=== PATIENT | female | born 1970 | race Caucasian/White ===

== ENCOUNTER 2019-01-26 14:16 | Emergency (ER) | payer OTHER, SELFPAY ==
[2019-01-26 14:17] VITALS: BP 192/90; PULSE 80; RESP 16; TEMP 36.4; O2SAT 100; BMI 41.9
--- NOTE | 2019-01-26 14:26 | RAD_ITS ---
STUDY: X-RAY - RIGHT KNEE REASON FOR EXAM: Female, 48 years old. Pain and fall TECHNIQUE: 4 view(s) of the knee. COMPARISON: None. FINDINGS: Normal visualized distal femur. Normal visualized proximal tibia and fibula. Normal proximal tibiofibular articulation. Normal medial femorotibial compartment. Normal lateral femorotibial compartment. Normal patellofemoral articulation. The soft tissue structures are unremarkable. RAD/Knee 4 or More Views IMPRESSION: No acute osseous injury is evident. Electronically Signed: Luiz Santos MD at 14:57 EST Tel , Service support ,
--- NOTE | 2019-01-26 14:27 | ED.VIS.GEN ---
History of Present Illness Chief Complaint: Lower Extremity Injury Informant: Patient Onset: Days Maximum Severity: Mild Narrative: Right knee pain after fall about 4 days ago Reports knee pain she simply tripped and fell and struck her knee she has had some pain with flexion extension of the knee and she noticed some discoloration over the medial start of the foot. She presents because of pain she is had no other complaints she does not have any knee problems no arthritic problems, no history of RI PE DVT Past Medical History - Allergies and Home Meds Allergies/Adverse Reactions: Allergies No Known Allergies Allergy (Verified 07/27/14 07:49) Primary Care Physician: Apurva Burgos MD [Primary Care Provider] - Past Medical History: - - Narcolepsy Smoking Status: Current every day smoker Review of Systems General: Denies: Chills, Fever, Sweats Eyes: Denies: Visual changes - bilaterally, Diplopia ENT: Denies: Rhinorrhea, Sore throat Cardiovascular: Denies: Chest pain, Palpitations Respiratory: Denies: Dyspnea, Cough, Dyspnea on exertion Gastrointestinal: Denies: Abdominal pain, Nausea, Vomiting, Diarrhea, Melena, Hematochezia Genitourinary: Denies: Dysuria, Hematuria, Frequency Musculoskeletal: Reports: Extremity Pain. Denies: Back pain Skin: Denies: Rash, Wounds Neurological: Denies: Headache, Weakness, Numbness Physical Exam Vital Signs/Narrative: Vital Signs Temp Pulse Resp BP Pulse Ox 01/26/19 14:17 97.6 F L 80 16 192/90 H 100 General: Well nourished, Well developed, No Acute Distress Head: Normocephalic, Atraumatic Eyes: Perrl, EOMI ENT: Moist mucous membranes, No rhinorrhea Neck: Supple, Nontender Cardiovascular: Regular rate, Regular rhythm, No murmurs Respiratory: No distress, CTA bilaterally, Chest nontender Abdomen: Soft, Nontender, Nondistended, Normal bowel sounds Back: Nontender, Normal Inspection Extremities: Nontender, No edema, - - Is a nonspecific discomfort diffusely over the knee the patella appears to be good position the skin is intact and closed she has full range of motion flexion extension she has some generalized contusion of different ages over the anterior blanco and she has an area of bluish contusion contusion over the right medial foot area the tib-fib ankle and foot are unremarkable there is no signs of cords there is no pain in the thigh she has full range of motion of her hip Skin: Normal color, No rash Neurological: Alert, Oriented x3, Cranial nerves II-XII grossly intact, Normal Strength, Normal Sensation Psychological: Normal affect, Normal Mood Diagnostic/Tx/Re-eval - Medical Decision Making Had a long conversation with the patient we are obtaining x-ray of the knee we discussed duplex scanning the duplex techs are not here at this time she is had no fever no cough no chest pain, she does not wish to have any for the pain Just the concept of an occult injury to the knee, this occurred about 4 days ago at this time x-rays unremarkable, she will follow-up with her primary care providers or Dr. Mitchell she was given referral for outpatient duplex scan for tomorrow and to return for change in symptoms Naprosyn Motrin [id number] for pain she does not believe she requires any walking devices Home stable Final impression right knee injury right lower extremity contusion ED Disposition - Plan for ED Patient: Diagnosis: Knee injury Instructions: Knee Sprain, KNEE PAIN, Meniscus Injury (Possible) Referrals: Apurva Burgos MD [Primary Care Provider] - Additional Instructions: Call for duplex scan tomorrow
== END 2019-01-26 15:24 | disposition home or self-care (01) ==
PROVIDERS: Emergency Provider Emergency Medicine; Family Provider Family Medicine; PCP Family Medicine
DX: S80.01XA Contusion of right knee, initial encounter (principal); W01.10XA Fall on same level from slipping, tripping and stumbling with subsequent striking against unspecified object, initial encounter; Y93.9 Activity, unspecified; Y92.9 Unspecified place or not applicable; Y99.9 Unspecified external cause status; G47.419 Narcolepsy without cataplexy; F17.200 Nicotine dependence, unspecified, uncomplicated
CPT/HCPCS: 73564; 99282

== ENCOUNTER → 2019-01-27 10:59 | Outpatient (CLI) | payer OTHER, SELFPAY ==
[2019-01-26 14:17] VITALS: BMI 41.9
--- NOTE | 2019-01-27 11:02 | VDLE_ITS ---
Reason For Study: Leg trauma/edema RIGHT LEFT GSV is normal. GSV is normal. CFV is compressible, spontaneous, phasic, CFV is compressible, spontaneous, phasic, competent and demonstrates normal competent, and demonstrates normal augmentation. augmentation. FV is compressible, spontaneous, phasic, FV is compressible, spontaneous, phasic, competent and demonstrates normal competent and demonstrates normal augmentation. augmentation. POP V is compressible, spontaneous, phasic, POP V is compressible, spontaneous, phasic, competent and demonstrates normal competent and demonstrates normal augmentation. augmentation. T/P Trunk is compressible. T/P Trunk is compressible. PTV is compressible. PTV is compressible. RT PerV is compressible. LT PerV is compressible. Procedure Exam performed in department. A preliminary report was called and/or faxed to [facility]. Pt seen in ED 01/26/19, PCP [facility]. Interpretation Summary Deep veins of the lower extremities are bilaterally patent and compressible segmentally. There is no evidence of deep vein thrombosis on either side. Valvular competence appears intact within the proximal deep venous systems bilaterally. The great saphenous veins appear bilaterally patent and compressible segmentally. Ordering Physician: Jose Alfredo Way Referring Physician: Apurva Burgos M.D. Performed By: Ruth Blancas RVT
== END ==
LOC: CVS 11:00
PROVIDERS: Family Provider Family Medicine; PCP Family Medicine; Referring Provider Emergency Medicine; Visit Provider Emergency Medicine
DX: R60.0 Localized edema (principal); S89.91XA Unspecified injury of right lower leg, initial encounter
CPT/HCPCS: 93970

== ENCOUNTER → 2019-03-06 09:56 | Outpatient (CLI) | payer OTHER, SELFPAY ==
--- NOTE | 2019-03-06 10:04 | RAD_ITS ---
STUDY: X-RAY - RIGHT SHOULDER REASON FOR EXAM: Female, 48 years old. FALL YESTERDAY -- RIGHT SHOULDER PAIN TECHNIQUE: 4 view(s) of the shoulder. COMPARISON: None. FINDINGS: Normal glenohumeral articulation. Normal acromioclavicular joint. Normal acromion. Normal humeral head and visualized proximal humerus. The soft tissue structures are unremarkable. Normal visualized pulmonary apex. RAD/Shoulder min 2 Views IMPRESSION: Normal x-ray examination of the shoulder. Electronically Signed: Heber Huntley, at 14:14 EST , Service support ,
== END ==
LOC: MTRAD 09:57
PROVIDERS: PCP Family Medicine; Referring Provider Family Medicine; Visit Provider Family Medicine
DX: M25.511 Pain in right shoulder (principal)
CPT/HCPCS: 73030

== ENCOUNTER 2023-01-01 20:30 | Emergency (ER) | payer BC, SELFPAY ==
[2023-01-01 20:31] VITALS: BP 204/97; PULSE 69; RESP 18; TEMP 36.6; O2SAT 100; BMI 39.9
--- NOTE | 2023-01-01 22:05 | ED.VIS.DENTA ---
HPI History of Present Illness Chief Complaint: Dental Informant: patient Onset/Context/Timing Onset: Days (4-5) Context: Gradual Onset Timing: Continuous Quality: Aching Location: Left lower teeth Worsened by: Palpation Relieved by: - (Nothing) Associated Symptoms Assocated Symptom - Dental: jaw swelling; Negative for fever, face swelling, cold sensitivity or hot sensitivity Narrative Narrative: Presents with left lower dental pain that has been getting worse over the past 4 to 5 days. Patient states it is gradually getting worse. Patient states it is over the left lower teeth. Patient states it is worse whenever she touches the area. Patient admits to some swelling over her left mandible. Patient denies any hot or cold sensitivity. Patient denies any fevers or chills. Patient also states that she has been having some dysuria and symptoms of urinary tract infection. Denies any nausea or vomiting. Patient denies any back or flank pain. [facility] Medical History (Updated 01/01/23 @ 22:[address] Ariel Kurtz DO) Multiple sclerosis Narcolepsy Home Medications bupropion HCl 200 mg tablet,12 hr sustained-release (Wellbutrin SR) 200 mg PO BID 07/27/14 [History Last Taken Unknown] dextroamphetamine-amphetamine 30 mg tablet (Adderall) 30 mg PO DAILY 07/27/14 [History Last Taken Unknown] cephalexin 500 mg capsule 500 mg PO Q6 #40 CAPSULES 01/01/23 [Rx Last Taken Unknown] Allergy/AdvReac Type Severity Reaction Status Date / Time No Known Allergies Allergy Verified 01/01/23 20:33 Surgical History no surgical history no surgical history Social History Smoking Status: Current every day smoker tobacco type: cigarettes ROS ROS ED Constitutional Constitutional ED: Denies chills or fever(s) Eyes Eyes: Denies blurry vision or change in vision ENT ENT ED: Denies rhinorrhea or sore throat Cardiovascular Cardiovascular: Denies chest pain or palpitations Respiratory/Chest Respiratory/Chest: Denies cough or dyspnea Gastrointestinal Gastrointestinal: Denies nausea or vomiting Genitourinary Genitourinary ED: Reports dysuria; Denies hematuria Musculoskeletal Musculoskeletal: Denies back pain or neck pain Integumentary Denies abscess or rash Neurologic Neurologic: Denies headache(s) or weakness Allergic/Immunologic Allergic/Immunologic ED: Denies mouth swelling or urticaria EXAM Physical Exam Const Vital Signs: 01/01/23 20:31 Temperature 97.9 F Temperature Source Temporal Pulse Rate 69 Respiratory Rate 18 Blood Pressure 204/97 H Blood Pressure Mean 132 Pulse Ox 100 Oxygen Delivery Method Room Air Positive well nourished, well developed and obese General Appearance ED: well developed and NAD Nutritional Appearance: obese HEENT HEENT Narrative: There are multiple dental caries noted. There is some gingival edema over the left lower premolars and left lower second molar. There is no fluctuance. There is no discharge or drainage noted. Oral mucosa is pink and moist. Oropharynx is clear. Neck is supple. Trachea is midline. There is no JVD or lymphadenopathy. There is no sublingual edema or erythema. There is no evidence of Mulugeta's angina. Mouth ED: Yes oral and palatal mucosa normal Mouth: oral and palatal mucosa normal Teeth and Gingiva: caries, gingiva abnormal Positive for gingival edema and poor dentition Neck supple and no JVD Resp normal respiratory effort and clear to auscultation bilaterally Cardio regular rate and regular rhythm GI non-tender and non-distended Palpation: soft Neuro oriented x3, CN's II-XII intact bilaterally, moves all extremities, no focal motor deficits and no sensory deficits noted Sensorium / Orientation: alert Motor Exam: strength 5/5 throughout Psych mental status grossly normal MDM MDM MDM Narrative Medical decision making narrative: Patient was advised that this is most likely infected dental caries. Patient was given a prescription for Keflex. Patient was advised that this would also cover for urinary tract infection. Patient was instructed to follow-up with her primary care physician and dentist in 5 to 7 days. Patient was instructed return if worse in any way. Patient understood and was agreeable with the plan. All questions were answered. Discharge Plan Triage Chief Complaint: Dental ED Provider: Ariel Kurtz Dx/Rx/DC Orders Clinical Impression: Urinary tract infection, Infected dental caries Instructions: ED Dental Pain, ED Dental Cavity, ED Cystitis Female Adult Prescriptions: New cephalexin [cephalexin] 500 mg capsule 500 mg PO Q6 Qty: 40 0RF No Action dextroamphetamine-amphetamine [Adderall] 30 MG tablet 30 mg PO DAILY bupropion HCl [Wellbutrin SR] 200 MG tablet 200 mg PO BID Primary Care Provider: Apurva Burgos Referrals: Apurva Burgos MD [Primary Care Provider] - 5-7 Days Dentist,Your [STAFF PHYSICIAN] - 5-7 Days Disposition Disposition: Home, Self Care
[2023-01-01] MEDS: Cephalexin 500 MG Capsule PO (22:18)
[2023-01-01 22:21] VITALS: BP 140/67; PULSE 88; RESP 16; O2SAT 97
== END 2023-01-01 22:22 | disposition home or self-care (01) ==
PROVIDERS: Emergency Provider Emergency Medicine; PCP Family Medicine; Visit Provider Emergency Medicine
DX: N39.0 Urinary tract infection, site not specified (principal); G35 Multiple sclerosis; K02.9 Dental caries, unspecified; F17.210 Nicotine dependence, cigarettes, uncomplicated
CPT/HCPCS: 99282

== ENCOUNTER 2023-07-11 21:20 | Emergency (ER) | payer BC, SELFPAY ==
[2023-07-11 21:21] VITALS: BP 131/58; PULSE 115; RESP 18; TEMP 36.4; O2SAT 96; BMI 39.2
--- NOTE | 2023-07-11 21:40 | ED.VIS.DENTA ---
HPI History of Present Illness Chief Complaint: Dental Narrative Narrative: 53-year-old female presenting with nausea and vomiting. Started about an hour ago. Patient denies cough, fever, shortness of breath. Denies abdominal pain. She denies constipation or diarrhea. No urinary or vaginal complaints. She is concerned that she may have nausea and vomiting from her teeth because they are in multiple stages of decay. She states she was told by her dentist that they need to be removed but it was, cost her $40,000 for her teeth to be removed so she opted not to. She is not having any trouble breathing. Her throat does not feel swollen. Tongue does not feel swollen. [facility] Medical History Narcolepsy Multiple sclerosis Home Medications ?Medication ?Instructions ?Recorded ?Last Taken ?Type bupropion HCl 200 mg tablet,12 hr 200 mg PO BID 07/27/14 Unknown History sustained-release (Wellbutrin SR) dextroamphetamine-amphetamine 30 30 mg PO DAILY 07/27/14 Unknown History mg tablet (Adderall) cephalexin 500 mg capsule 500 mg PO Q6 #40 CAPSULES 01/01/23 Unknown Rx Allergy/AdvReac Type Severity Reaction Status Date / Time No Known Allergies Allergy Verified 07/11/23 21:24 Social History Smoking Status: Current every day smoker tobacco type: cigarettes ROS ROS ED Constitutional Constitutional ED: Denies chills, fever(s) or sweats Eyes Eyes: Denies blurry vision or change in vision ENT ENT ED: Reports other Details: Dental pain ; Denies ear pain or sore throat Cardiovascular Cardiovascular: Denies chest pain, palpitations or racing heartbeat Respiratory/Chest Respiratory/Chest: Denies cough, dyspnea or sputum Gastrointestinal Gastrointestinal: Reports nausea and vomiting; Denies abdominal pain, constipation or diarrhea Genitourinary Genitourinary ED: Denies dysuria, hematuria or urinary frequency Musculoskeletal Musculoskeletal: Denies arthralgias, myalgias or neck pain Integumentary Denies abscess, Abrasions or rash Neurologic Neurologic: Denies headache(s), paresthesias or weakness Psychiatric Psychiatric: Denies anxiety, depression, suicidal ideation or suicidal thoughts Endocrine Endocrinology: Denies polydipsia or polyuria EXAM Physical Exam Const Vital Signs: 07/11/23 21:21 Temperature 97.5 F L Temperature Source Temporal Pulse Rate 115 H Respiratory Rate 18 Blood Pressure 131/58 H Blood Pressure Mean 82 Pulse Ox 96 Positive well nourished General Appearance ED: NAD HEENT HEENT Narrative: Multiple dental caries. Various stages of decay. Partially edentulous. No focal fluctuance or abscess. No submandibular edema. Mouth ED: Yes oral and palatal mucosa normal, Yes lips normal and Yes tongue normal Mouth: oral and palatal mucosa normal, lips normal and tongue normal Eyes PERRL and EOMs intact bilaterally Neck no lymphadenopathy Resp normal respiratory effort and no retractions Cardio regular rhythm Rate: tachycardic GI normal to inspection, nondistended, normoactive bowel sounds Neuro oriented x3 and CN's II-XII intact bilaterally Sensorium / Orientation: alert Motor Exam: strength 5/5 throughout Psych mental status grossly normal Skin no rashes or lesions noted MDM MDM MDM Narrative Medical decision making narrative: Patient presenting with nausea and vomiting. She does have dental caries in multiple stages of decay but I do not see any focal abscess or anything that is to be drained. No evidence of Ludewig's angina. Since the patient is vomiting and she is tachycardic I will establish an IV line. She is given IV fluids and Zofran. Check CBC to assess white blood cell count, hemoglobin. BMP to assess renal function electrolytes. CBC and BMP unremarkable. Patient was able to tolerate oral Augmentin. I will fill a prescription for Augmentin and Zofran for her to take with her. I recommend she follow-up with her dental professional. Impression: 1. Dental caries 2. Nausea/vomiting Lab Data Attestation: I reviewed the patient's lab results. Labs: Laboratory Results - last 24 hr 07/11/23 21:52 WBC 7.1 RBC 5.25 Hgb 14.9 Hct 46.6 MCV 88.8 MCH 28.4 MCHC 32.0 RDW Std Deviation 42.9 RDW Coeff of Tonja 13.2 Plt Count 221 MPV 10.7 Immature Gran % (Auto) 0.400 Neut % (Auto) 95.5 H Lymph % (Auto) 3.4 L Harlan % (Auto) 0.3 Eos % (Auto) 0.0 Baso % (Auto) 0.4 Absolute Neuts (auto) 6.8 Absolute Lymphs (auto) 0.24 L Nucleated RBC % 0 Sodium 139 Potassium 3.4 L Chloride 105 Carbon Dioxide 26.0 Anion Gap 8 BUN 14 Creatinine 0.95 Estim Creat Clear Calc 85.09 Est GFR (MDRD) Af Amer 78 Est GFR (MDRD) Non-Af 65 BUN/Creatinine Ratio 14.7 Glucose 156 H Calcium 9.8 Discharge Plan Triage Chief Complaint: Dental ED Provider: Bert Alvarado Dx/Rx/DC Orders Prescriptions: No Action dextroamphetamine-amphetamine [Adderall] 30 MG tablet 30 mg PO DAILY bupropion HCl [Wellbutrin SR] 200 MG tablet 200 mg PO BID cephalexin [cephalexin] 500 mg capsule 500 mg PO Q6 Qty: 40 0RF Primary Care Provider: Apurva Burgos Referrals: Apurva Burgos MD [Primary Care Provider] - Print Language: Chinese
[2023-07-11] MEDS: 0.9% Normal Saline (1000mL) 1,000 ML 1000 ML IV (21:49)
[2023-07-11] MEDS: Ondansetron 4 MG/2 ML Vial IV (21:50)
[2023-07-11 21:59] LABS: Absolute Lymphocyte Count 0.24 X10^3/uL (0.83-4.51); Absolute Neutrophil Count 6.8 X10^3/uL (2.0-7.7); Basophil# 0.03 X10^3/uL; Basophil% 0.4 % (0-1); Hematocrit 46.6 % (37-47); Hemoglobin 14.9 g/dL (12.0-15.0); Lymphocyte # 0.24 X10^3/ul (0.83-4.51); Lymphocyte % 3.4 % (19-41); Mean Corpuscular Hgb 28.4 pg (27.0-32.0); Mean Corpuscular Volume 88.8 fL (81-99); Mean Platelet Vol. 10.7 fl (6.2-12.0); Monocyte# 0.02 X10^3/uL; Monocyte% 0.3 % (0-10); NRBC Flagged by Analyzer 0 % (0-5); Neutrophil # 6.77 X10^3/uL (2.7-7.7); Neutrophil % 95.5 % (47-70); POSITIVE DIFFERENTIAL YES; Platelet Count 221 K/mm3 (150-450); RBC Distribution Width CV 13.2 % (11.6-14.6); RBC Distribution Width SD 42.9 fl (35.1-43.9); Red Blood Count 5.25 M/mm3 (4.2-5.4); White Blood Count 7.1 K/mm3 (4.4-11.0)
[2023-07-11 22:24] LABS: Anion Gap 8 (5-15); BUN 14 mg/dL (7-18); BUN/Creat Ratio 14.7 RATIO (10-20); Calcium,Total 9.8 mg/dL (8.5-10.1); Chloride 105 mmol/L (98-107); Creatinine, Serum 0.95 mg/dL (0.55-1.02); EST Glomerular Filtration Rate 65 mL/min (>60); Est Glom Filt Rate - Afr Amer 78 mL/min (>60); Estimated Creatinine Clearance 85.09 ml/min; Glucose 156 mg/dL (74-106); Potassium 3.4 mmol/L (3.5-5.1); Sodium Level 139 mmol/L (136-145)
[2023-07-11] MEDS: Amox/Clavulanate 875 MG Tablet PO (22:31)
[2023-07-11 22:55] VITALS: BP 140/90; PULSE 102; RESP 16; O2SAT 99
[2023-07-11 23:30] VITALS: BP 140/78; PULSE 90; RESP 16; TEMP 36.4; O2SAT 99
== END 2023-07-12 | disposition home or self-care (01) ==
PROVIDERS: Emergency Provider Student in an Organized Health Care Education/Training Program; PCP Family Medicine; Visit Provider Student in an Organized Health Care Education/Training Program
DX: K02.9 Dental caries, unspecified (principal); G35 Multiple sclerosis; F17.210 Nicotine dependence, cigarettes, uncomplicated; R11.2 Nausea with vomiting, unspecified
CPT/HCPCS: 80048; 85025; 96361; 96374; 96376; 99283; J7030; A4216; J2405

== ENCOUNTER → 2025-01-09 | Outpatient (CLI) | payer BC, MEDICARE, SELFPAY ==
--- NOTE | 2025-01-09 13:10 | MRI_ITS ---
EXAM: PELVIS W/WO CONTRAST 01/09/2025 CLINICAL HISTORY: LEFT BUTTOCK MASS. TECHNIQUE: Procedure Code: [id number] Modality: MR Procedure: PELVIS W/WO CONTRAST Multiplanar and multisequence images were obtained intravenous gadolinium contrast. CONTRAST: Clariscan VOLUME: 20 mL COMPARISON: None. FINDINGS: Multiseptated soft tissue mass arising from the most medial aspect of the left gluteus camille muscle and extending to the overlying subcutaneous fat measuring 22.3 x 10.2 x 19.8 cm in its largest transverse, anteroposterior and craniocaudal dimensions respectively without suspicious/nodular enhancement, probably lipoma. Mild multifocal displacement of the overlying fat without associated edema. No lymphadenopathy is seen. No fluid collection is noted. No associated gluteal muscular edema. The mass is not abutting underlying bones. Unremarkable major neurovascular bundles. Mildly heterogeneous signal intensity of the visualized bone marrow, probably osteopenia. Unremarkable visualized bowels. Unremarkable visualized colon. Right ovarian cyst measuring 2.5 cm. Unremarkable visualized uterus and left ovary. Unremarkable bladder. MRI/Pelvis W/WO Contrast IMPRESSION: Multiseptated soft tissue mass arising from the most medial aspect of the left gluteus camille muscle and extending to the overlying subcutaneous fat measuring 22.3 x 10.2 x 19.8 cm in its largest trans verse, anteroposterior and craniocaudal dimensions respectively without suspicious/nodular enhancement, probably lipoma. Mild mul tifocal displacement of the overlying fat without associated edema. No lymphadenopathy is seen. No fluid collection is noted. No associated gluteal muscular edema. The mass is not abutting underlying bones. Unremarkable major neurovascular bundles. Mildly heterogeneous signal intensity of the visualized bone marrow, probably o steopenia. Right ovarian cyst measuring 2.5 cm. Reading Location: [place] [id number]
--- OUTSIDE RECORDS SUMMARY | 2025-01-09 13:15 | XMS RPT_ITS | CCD ---
Author Organization [facility] Care Team Providers Care Principal Planner Name Role Phone Apurva Burgos Primary Care Provider LUIZ BLANCO Attending Unavailable JOLLCADEN, APURVA COLEMANER Primary Care Unavailable Apurva Burgos Primary Care Provider [phone] Ericka Ramires Attending Unavailable Alicia, Chalon Primary Care Unavailable Alicia, Chalon Referring Unavailable Alicia, Chalon Primary Care Unavailable Alicia, Chalon Referring Unavailable Ericka Ramires Attending Unavailable Alicia, Chalon Primary Care Unavailable Alicia, Chalon Attending Unavailable Alicia, Chalon Referring Unavailable RUCKERZEON Referring Unavailable JOLLIFF, APURVA ANTONIO Primary Care Unavailable JAIMES, MALKAEIN Referring Unavailable JOLLIFF, APURVA ANTONIO Primary Care Unavailable JAIMES, MALKAEIN Attending Unavailable JOLLIFF, APURVA ANTONIO Primary Care Unavailable JAIMES, MOEIN Referring Unavailable JOLLIFF, APURVA ANTONIO Primary Care Unavailable Medications Current Medications Medication Drug Class(es) Dates Sig (Normalized) Sig (Original) amphetamine aspartate 7.5 mg / amphetamine sulfate 7.5 mg / dextroamphetamine saccharate 7.5 mg / dextroamphetamine sulfate 7.5 mg oral tablet (1 source) Central Nervous System Stimulant Start: 07-27-2014 take 1 tablet by mouth once daily Dextroamphetamin e-Amphetamine (Adderall 30 Mg Tablet) 30 MG tablet Active 30 MG PO DAILY July 26, 2014 11:00pm 24 hr buPROPion hydrochloride 150 mg extended release oral tablet (20 sources) Aminoketone Start: 08-03-2019 take 1 tablet by mouth twice daily buPROPion XL (WELLBUTRIN XL) 150 mg 24 hr tablet Take 150 mg by mouth twice daily. 08/03/2019 Active Start: 07-27-2014 take 1 tablet by gerard twice daily Bupropion Hcl (Wellbutrin Sr) 200 MG tablet Active 200 MG PO TWICE A DAY July 26, 2014 11:00pm Comment on above: Take 150 mg by mouth twice daily. cephalexin 500 mg oral capsule (1 source) Cephalosporin Antibacterial Start: take 500 mg by mouth every six hours Cephalexin Active 500 MG PO EVERY 6 HOURS 40 January 01, 2023 12:00am cholecalciferol 0.025 mg oral capsule (19 sources) Vitamin D Start: End: take 5 capsules by mouth once daily Cholecalciferol, Vitamin D3, (VITAMIN D) 25 mcg (1,000 unit) cap Indications: Hypovitaminosis D Take 5 capsules by mouth once daily. 150 capsule 5 06/01/2021 Active Comment on above: Take 5 capsules by m out once daily. dimethyl fumarate 240 mg delayed release oral capsule (20 sources) Start: End: take 1 capsule by mouth twice daily dimethyl fumarate (TECFIDERA) [address] Indications: Multiple sclerosis (HCC) TAKE ONE CAPSULE BY MOUTH TWICE DAILY 60 capsule 09/11/2024 Active Start: 01-31-2023 End: 04-07-2024 take 1 capsule by mouth twice daily dimethyl fumarate (TECFIDERA) [address] Indications: Multiple sclerosis (HCC) Take 1 capsule (240 mg) by mouth two times a day. 180 capsule 3 01/31/2023 04/07/2024 Discontinued Start: 12-18-2022 take 1 capsule by [facility] twice daily dimethyl fumarate (TECFIDERA) [address] Indications: Multiple sclerosis (HCC) Take 1 capsule (240 mg) by mouth two times a day. Need appointment with physician and labs for any further refill 60 capsule 0 12/18/2022 Active Start: 01-26-2022 End: 04-17-2022 take 1 capsule by mouth twice daily dimethyl fumarate (TECFIDERA) [address] Take 1 capsule (240 mg) by mouth twice daily. 60 capsule 1 04/17/2022 Active Start: 09-01-2020 End: 09-13-2021 take 1 capsule by mouth twice daily dimethyl fumarate (TECFIDERA) [address] Take 1 capsule (240 mg) by mouth twice daily. 60 capsule 1 04/17/2022 Active Comment on above: Take 1 capsule (240 mg) by mouth twice daily. Take 240 mg by mouth twice daily. TAKE 1 CAPSULE (240M G) BY MOUTH TWICE DAILY Take 1 capsule (240 mg) by mouth two times a day. Need appointment with physician and labs for any further refill ibuprofen 600 mg oral tablet (15 sources) Nonsteroidal Anti-inflammatory Drug Start: 024 take 1 tablet by mouth every eight hours as needed ibuprofen (MOTRIN) 600 mg tablet Take 1 tablet by mouth every 8 hours as needed for pain. 20 tablet 07/12/2023 Active iv contrast (will be provided with radiology test) (4 sources) Start: End: inject 1 dose intravenously once iv contrast (will be provided with radiology test) Indications: Demyelinating disease of central nervous system (HCC) MRI Brain Inject, intravenously, once for 1 dose.No IV access, insert saline lock prior to beginning of sedation, infusion, injection of imaging exam.Discontinue saline lock post exam. If Pt. has a central line or IVAD, may access for administration according to line specific nursing protocol.Once exam is complete flush line and de-access according to line specific nursing protocol in the MR contrast administration guidelines link 1 Each 0 04/17/2022 04/18/2022 Active Start: 04-17-2022 End: 04-18-2022 iv contrast (will be provide d with radiology test) Indications: Demyelinating disease of central nervous system (HCC) MRI CSP Inject, intravenously, once for 1 dose. No IV access, insert saline lock prior to the beginning of sedation, infusion, injection of imaging exam. Discontinue saline lock post exam. If Pt. has a central line or IVAD, may access for administration according to line specific nursing protocol. Once exam is complete flush line and de-access according to line specific nursing protocol in the MR contrast administration guidelines link. 1 Each 0 04/17/2022 04/18/2022 Active Comment on above: MRI Brain Inject, in travenously, once for 1 dose.No IV access, insert saline lock prior to beginning of sedation, infusion, injection of imaging exam.Discontinue saline lock post exam. If Pt. has a central line or IVAD, may access for administration according to line specific nursing protocol.Once exam is complete flush line and de-access according to line specific nursing protocol in the MR contrast administration guidelines link MRI CSP Inject, intr avenously, once for 1 dose. No IV access, insert saline lock prior to the beginning of sedation, infusion, injection of imaging exam. Discontinue saline lock post exam. If Pt. has a central line or IVAD, may access for administration according to line specific nursing protocol. Once exam is complete flush line and de-access according to line specific nursing protocol in the MR contrast administration guidelines link. 24 hr metFORMIN hydrochloride 500 mg extended release oral tablet (20 sources) Biguanide Start: 12-01-19 20 take 1 tablet by mouth once daily metFORMIN ER (GLUCOPHAGE XR) 500 mg 24 hr tablet Take 1,000 mg by mouth once daily. 12/01/2019 Active Comment on above: Take 1,000 mg by gerard th once daily. OTC NUTRITIONAL SUPPLEMENT (20 sources) take 1 tablet by mouth twice daily OTC NUTRITIONAL SUPPLEMENT Take 1 tablet by mouth twice daily. Active take 1 tablet by mouth twice kay ly OTC NUTRITIONAL SUPPLEMENT Take 1 tablet by mouth twice daily. 0 Active Comment on above: Take 1 tablet by gerard th twice daily. rosuvastatin 10 mg oral capsule (20 sources) HMG-CoA Reductase Inhibitor rosuvastatin 10 mg c pSP Active Completed/Discontinued Medications Medication Drug Class(es) Dates Sig (Normalized) Sig (Original) modafinil 100 mg oral tablet (9 sources) Sympathomimetic-li ke Agent Start: 05-07-2020 take 1 tablet by mouth twice daily modafinil (PROVIGIL) 100 mg tablet Indications: Other fatigue Take 1 tablet by mouth twice daily for 180 days. Take at 0700 and noon. Discontinue adderall. 180 tablet 1 05/07/2020 Active Comment on above: Take 1 tablet by gerard th twice daily for 180 days. Take at 0700 and noon. Discontinue adderall. Problems Active Problems Problem Classification Problem Date Documented Date Episodic/Chronic Blindness and vision defects (1 source) Other visual disturbances; Translations: [Blurred vision] Onset: 12-05-2024 Episodic Diabetes mellitus without complication (15 sources) Latent autoimmune diabetes mellitus in adult; Translations: [Other specified diabetes mellitus without complications] Onset: 11-07-2019 01-31-2023 Chronic Immunizations and screening for infectious disease (1 source) Encounter for screening for human immunodeficiency virus [HIV]; Translations: [Encounter for screening for human immunodeficiency virus (HIV)] Onset: 12-05-2024 Episodic Malaise and fatigue (1 source) Malaise and fatigue; Translations: [Other malaise] Episodic Multiple sclerosis (20 sources) Multiple sclerosis; Translations: [Multiple sclerosis] Onset: 08-20-2019 08-20-2019 Chronic Nutritional deficiencies (2 sources) Vitamin D deficiency; Translations: [Vitamin D deficiency, unspecified] Chronic Other aftercare (3 sources) Patient encounter status; Translations: [Other prison (current) drug therapy] Episodic Other liver diseases (1 source) Abnormal levels of other serum enzymes; Translations: [Elevated liver enzymes] Onset: 12-05-2024 Episodic Other nervous system disorders (16 sources) Cataplexy and narcolepsy; Translations: [Narcolepsy with cataplexy] Onset: 02-13-1996 Chronic Other nervous system disorders (2 sources) Demyelinating disease of central nervous system; Translations: [Demyelinating disease of central nervous system, unspecified] Chronic Other nervous system disorders (1 source) Narcolepsy; Translations: [Narcolepsy without cataplexy] 01-01-2023 Chronic Other nervous system disorders (2 sources) Abnormal gait; Translations: [Unspecified abnormalities of gait and mobility] 08-07-2023 Episodic Other skin disorders (1 source) Follicular cyst of the skin and subcutaneous tissue, unspecified; Translations: [Skin cyst] Onset: 12-05-2024 Episodic Other upper respiratory infections (1 source) Acute maxillary sinusitis, unspecified; Translations: [Subacute maxillary sinusitis] Onset: 07-12-2023 Episodic Urinary tract infections (1 source) Urinary tract infectious disease; Translations: [Urinary tract infection, site not specified] 01-01-2023 Episodic Past or Other Problems Problem Classification Problem Date Documented Da te Episodic/Chronic Disorders of teeth and jaw (17 sources) Dental caries; Translations: [Dental caries, unspecified] Onset: 01-05-2023 01-01-2023 Episodic Results Test Name Value Interpretation Reference Range Facility [facility] 12-23-2024 [facility] Telephone ([facility]) -- JOSÉ MIGUEL CEDILLO ([id number]) 1970 F Date Time Provider Department 12/23/24 LISA JAIMES During your visit today, we recorded the following information about you: John Villalobos 12/23/2024 4:19 PM Signed Left message for patient to schedule 2 week follow up in [place] with Clive. Per staff message: Lisa Jaimes MD [facility] [place], Can you please schedule this patient with a follow up visit with Jania Duffy at [place] in about 2 weeks? Thanks, Allergies As of Date: 12/23/2024 (No Known Allergies) Date Reviewed: 12/23/2024 Reviewed by: Kimmy Arteaga, RT(R) - Fully Assessed Prescriptions as of 12/23/2024 - dimethyl fumarate (TECFIDERA) [address] TAKE ONE CAPSULE BY MOUTH TWICE DAILY - ibuprofen (MOTRIN) 600 mg tablet Take 1 tablet by mouth every 8 hours as needed for pain. - Cholecalciferol, Vitamin D3, (VITAMIN D) 25 mcg (1,000 unit) cap Take 5 capsules by mouth once daily. - OTC NUTRITIONAL SUPPLEMENT Take 1 tablet by mouth twice daily. - rosuvastatin 10 mg cpSP - metFORMIN ER (GLUCOPHAGE XR) 500 mg 24 hr tablet Take 1,000 mg by mouth once daily. - buPROPion XL (WELLBUTRIN XL) 150 mg 24 hr tablet Take 150 mg by mouth twice daily. 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 Routine follow-up TECHNIQUE: Brain MRI with demyelinating disease protocol with and without gadolinium. Routine cervical and thoracic spine protocol with and without gadolinium. MQ: [id number] Contrast: 10 mL Elucirem IV COMPARISON: MRI brain/cervical spine 08/06/2023 RESULT: MR BRAIN: Parenchymal Findings: There are multiple foci of hyperintensity on FLAIR and T2 within the white matter, compatible with the clinical diagnosis of multiple sclerosis. New T2 Lesions: None Interval Improvement: None. New Enhancing Lesions: None T2 [place] of Disease: Severe. Parenchymal Volume Loss: Moderate. Other Significant Findings/Site(s) of New T2 Lesions(s): Significantly decreased size and possible intervening partial resection of previously seen cystic lesion involving the anterior maxilla on the left. MR CERVICAL: Counting reference: Craniocervical junction. Anatomic Variants: None. Alignment: Straightening of the cervical lordosis. Craniocervical Junction: Craniocervical junction is normal. Cord Findings: Patchy foci of hyperintensity in the cervical cord on the T2, IR and axial gradient echo images compatible with the history of multiple sclerosis. Cord T2 Plaque [place]: Moderate New T2 Lesions: None Interval Cord Improvement: None New Cord Enhancing Lesions: None Cord Volume Loss: Normal morphology for age Bone marrow signal/fracture: No evidence of pathologic marrow infiltration. No evidence of prior fracture. Soft tissues: The paraspinal soft tissues are within normal limits. C2-C3: Patent canal and foramina. C3-C4: Shallow disc/osteophyte complex, uncovertebral and facet hypertrophy; patent canal, patent right foramen, mild left foraminal stenosis. C4-C5: Osteophyte complex eccentric to the right abutting/flattening the ventral cord, mild to moderate left greater than right foraminal stenosis. C5-C6: Prominent right central disc protrusion abutting/flattening the ventral cord. At least mild bilateral foraminal stenosis. C6-C7: Broad-based right central disc protrusion abutting the ventral cord. Foramina appear patent. C7-T1: Patent canal and foramina. MR THORACIC: Counting reference: Lumbosacral junction. For the purposes of this report, L4-5 is considered the level of the iliac crest. Alignment: Alignment is anatomic. Cord Findings: Patchy foci of hyperintensity in the thoracic cord on the T2, IR and axial gradient echo images compatible with the history of multiple sclerosis. Cord T2 Plaque [place]: Mild New T2 Lesions: Not Applicable Interval Cord Improvement: Not Applicable New Cord Enhancing Lesions: None Cord Volume Loss: Normal morphology for age Bone marrow signal/fracture: Scattered intraosseous hemangiomata, the largest within the T5/T6 vertebral bodies. No evidence of pathologic marrow infiltration. No evidence of prior fracture. Soft tissues: The paraspinal soft tissues are within normal limits. Canal and foramina: Few scattered shallow disc protrusions without significant cord impacted any level. IMPRESSION: Multiple intracranial white matter lesions compatible with multiple sclerosis. No new T2 lesions and no new enhancing lesions. Moderate parenchymal volume loss. Other Significant Intracranial Findings: Significantly decreased size and possible intervening resection of cystic lesion previously involving the anterior maxilla on the left. Scattered intramedullary lesions compatible with the clinical history of multiple sclerosis. No new T2 intramedullary lesions and no new enhancing intramedullary lesions. No significant volume loss of the upper spinal cord for age. Other Significant cervicothoracic Spine Findings: Scattered spondylosis, as detailed. Cervical Anatomic Variant: None. Assume 7 cervical vertebrae with counting from the craniocervical junction. *Note: The definition of new T2 Lesions includes both new and enlarging plaques on T2-weighted FLAIR images (new lesions greater than or equal to 5mm3 or an increase in diameter of an existing lesion by greater than or equal to 2mm). [employer] Supervisor: PSCMarco Antonio Transcribe Date/Time: Dec 23 2024 3:18P Dictated by : DIANA YU MD This examination was interpreted and the report reviewed and electronically signed by: DIANA YU MD on Dec 23 2024 3:43PM EST [id number] Normal [facility] MRI CERVICAL SPINE WO/W IVCO Non 12-23-2024 MRI CERVICAL SPINE WO/W IVCON * * *Final Report* * * DATE OF EXAM: Dec 23 2024 3:07PM [facility] [id number] - MRI CERVICAL SPINE WO/W IVCON / PROCEDURE REASON: Multiple sclerosis * * * * Physician Interpretation * * * * EXAMINATION: MRI CERVICAL SPINE WO/W IVCON, MRI BRAIN WO/W IVCON, MRI THORACIC SPINE WO/W IVCON HISTORY: Multiple sclerosis. Routine follow-up TECHNIQUE: Brain MRI with demyelinating disease protocol with and without gadolinium. Routine cervical and thoracic spine protocol with and without gadolinium. MQ: [id number] Contrast: 10 mL Elucirem IV COMPARISON: MRI brain/cervical spine 08/06/2023 RESULT: MR BRAIN: Parenchymal Findings: There are multiple foci of hyperintensity on FLAIR and T2 within the white matter, compatible with the clinical diagnosis of multiple sclerosis. New T2 Lesions: None Interval Improvement: None. New Enhancing Lesions: None T2 [place] of Disease: Severe. Parenchymal Volume Loss: Moderate. Other Significant Findings/Site(s) of New T2 Lesions(s): Significantly decreased size and possible intervening partial resection of previously seen cystic lesion involving the anterior maxilla on the left. MR CERVICAL: Counting reference: Craniocervical junction. Anatomic Variants: None. Alignment: Straightening of the cervical lordosis. Craniocervical Junction: Craniocervical junction is normal. Cord Findings: Patchy foci of hyperintensity in the cervical cord on the T2, IR and axial gradient echo images compatible with the history of multiple sclerosis. Cord T2 Plaque [place]: Moderate New T2 Lesions: None Interval Cord Improvement: None New Cord Enhancing Lesions: None Cord Volume Loss: Normal morphology for age Bone marrow signal/fracture: No evidence of pathologic marrow infiltration. No evidence of prior fracture. Soft tissues: The paraspinal soft tissues are within normal limits. C2-C3: Patent canal and foramina. C3-C4: Shallow disc/osteophyte complex, uncovertebral and facet hypertrophy; patent canal, patent right foramen, mild left foraminal stenosis. C4-C5: Osteophyte complex eccentric to the right abutting/flattening the ventral cord, mild to moderate left greater than right foraminal stenosis. C5-C6: Prominent right central disc protrusion abutting/flattening the ventral cord. At least mild bilateral foraminal stenosis. C6-C7: Broad-based right central disc protrusion abutting the ventral cord. Foramina appear patent. C7-T1: Patent canal and foramina. MR THORACIC: Counting reference: Lumbosacral junction. For the purposes of this report, L4-5 is considered the level of the iliac crest. Alignment: Alignment is anatomic. Cord Findings: Patchy foci of hyperintensity in the thoracic cord on the T2, IR and axial gradient echo images compatible with the history of multiple sclerosis. Cord T2 Plaque [place]: Mild New T2 Lesions: Not Applicable Interval Cord Improvement: Not Applicable New Cord Enhancing Lesions: None Cord Volume Loss: Normal morphology for age Bone marrow signal/fracture: Scattered intraosseous hemangiomata, the largest within the T5/T6 vertebral bodies. No evidence of pathologic marrow infiltration. No evidence of prior fracture. Soft tissues: The paraspinal soft tissues are within normal limits. Canal and foramina: Few scattered shallow disc protrusions without significant cord impacted any level. IMPRESSION: Multiple intracranial white matter lesions compatible with multiple sclerosis. No new T2 lesions and no new enhancing lesions. Moderate parenchymal volume loss. Other Significant Intracranial Findings: Significantly decreased size and possible intervening resection of cystic lesion previously involving the anterior maxilla on the left. Scattered intramedullary lesions compatible with the clinical history of multiple sclerosis. No new T2 intramedullary lesions and no new enhancing intramedullary lesions. No significant volume loss of the upper spinal cord for age. Other Significant cervicothoracic Spine Findings: Scattered spondylosis, as detailed. Cervical Anatomic Variant: None. Assume 7 cervical vertebrae with counting from the craniocervical junction. *Note: The definition of new T2 Lesions includes both new and enlarging plaques on T2-weighted FLAIR images (new lesions greater than or equal to 5mm3 or an increase in diameter of an existing lesion by greater than or equal to 2mm). [employer] Supervisor: BONNIE Transcribe Date/Time: Dec 23 2024 3:18P Dictated by : DIANA YU MD This examination was interpreted and the report reviewed and electronically signed by: DIANA YU MD on Dec 23 2024 3:43PM EST [id number] Normal [facility] MRI THORACIC SPINE WO/W IVCO Non 12-23-2024 MRI THORACIC SPINE WO/W IVCON * * *Final Report* * * DATE OF EXAM: Dec 23 2024 3:07PM [facility] 0326 - MRI THORACIC SPINE WO/W IVCON / PROCEDURE REASON: Multiple sclerosis * * * * Physician Interpretation * * * * EXAMINATION: MRI CERVICAL SPINE WO/W IVCON, MRI BRAIN WO/W IVCON, MRI THORACIC SPINE WO/W IVCON HISTORY: Multiple sclerosis. Routine follow-up TECHNIQUE: Brain MRI with demyelinating disease protocol with and without gadolinium. Routine cervical and thoracic spine protocol with and without gadolinium. MQ: [id number] Contrast: 10 mL Elucirem IV COMPARISON: MRI brain/cervical spine 08/06/2023 RESULT: MR BRAIN: Parenchymal Findings: There are multiple foci of hyperintensity on FLAIR and T2 within the white matter, compatible with the clinical diagnosis of multiple sclerosis. New T2 Lesions: None Interval Improvement: None. New Enhancing Lesions: None T2 [place] of Disease: Severe. Parenchymal Volume Loss: Moderate. Other Significant Findings/Site(s) of New T2 Lesions(s): Significantly decreased size and possible intervening partial resection of previously seen cystic lesion involving the anterior maxilla on the left. MR CERVICAL: Counting reference: Craniocervical junction. Anatomic Variants: None. Alignment: Straightening of the cervical lordosis. Craniocervical Junction: Craniocervical junction is normal. Cord Findings: Patchy foci of hyperintensity in the cervical cord on the T2, IR and axial gradient echo images compatible with the history of multiple sclerosis. Cord T2 Plaque [place]: Moderate New T2 Lesions: None Interval Cord Improvement: None New Cord Enhancing Lesions: None Cord Volume Loss: Normal morphology for age Bone marrow signal/fracture: No evidence of pathologic marrow infiltration. No evidence of prior fracture. Soft tissues: The paraspinal soft tissues are within normal limits. C2-C3: Patent canal and foramina. C3-C4: Shallow disc/osteophyte complex, uncovertebral and facet hypertrophy; patent canal, patent right foramen, mild left foraminal stenosis. C4-C5: Osteophyte complex eccentric to the right abutting/flattening the ventral cord, mild to moderate left greater than right foraminal stenosis. C5-C6: Prominent right central disc protrusion abutting/flattening the ventral cord. At least mild bilateral foraminal stenosis. C6-C7: Broad-based right central disc protrusion abutting the ventral cord. Foramina appear patent. C7-T1: Patent canal and foramina. MR THORACIC: Counting reference: Lumbosacral junction. For the purposes of this report, L4-5 is considered the level of the iliac crest. Alignment: Alignment is anatomic. Cord Findings: Patchy foci of hyperintensity in the thoracic cord on the T2, IR and axial gradient echo images compatible with the history of multiple sclerosis. Cord T2 Plaque [place]: Mild New T2 Lesions: Not Applicable Interval Cord Improvement: Not Applicable New Cord Enhancing Lesions: None Cord Volume Loss: Normal morphology for age Bone marrow signal/fracture: Scattered intraosseous hemangiomata, the largest within the T5/T6 vertebral bodies. No evidence of pathologic marrow infiltration. No evidence of prior fracture. Soft tissues: The paraspinal soft tissues are within normal limits. Canal and foramina: Few scattered shallow disc protrusions without significant cord impacted any level. IMPRESSION: Multiple intracranial white matter lesions compatible with multiple sclerosis. No new T2 lesions and no new enhancing lesions. Moderate parenchymal volume loss. Other Significant Intracranial Findings: Significantly decreased size and possible intervening resection of cystic lesion previously involving the anterior maxilla on the left. Scattered intramedullary lesions compatible with the clinical history of multiple sclerosis. No new T2 intramedullary lesions and no new enhancing intramedullary lesions. No significant volume loss of the upper spinal cord for age. Other Significant cervicothoracic Spine Findings: Scattered spondylosis, as detailed. Cervical Anatomic Variant: None. Assume 7 cervical vertebrae with counting from the craniocervical junction. *Note: The definition of new T2 Lesions includes both new and enlarging plaques on T2-weighted FLAIR images (new lesions greater than or equal to 5mm3 or an increase in diameter of an existing lesion by greater than or equal to 2mm). [employer] Supervisor: BONNIE Transcribe Date/Time: Dec 23 2024 3:18P Dictated by : DIANA YU MD This examination was interpreted and the report reviewed and electronically signed by: DIANA YU MD on Dec 23 2024 3:43PM EST [id number] Normal [facility] BLOOD TB SCREENon 12-09-2024 M. tuberculosis tuberculin stim IFN-g Ql (Bld) Negative Normal [facility] Comment on above: Order Comment: Speci men Type: BLOOD SPECIMEN Ordering Facility: [facility] Address: [address] [place] [address] Performed By: #### I NFTBP #### [facility] CLIA [id number] [address] [place] [address] [place] MITOGEN MINUS NIL >9.99 Normal >=0.50 [facility] Comment on above: Order Comment: Speci men Type: BLOOD SPECIMEN Ordering Facility: [facility] Address: [address] [place] [address] Performed By: #### I NFTBP #### [facility] CLIA [id number] [address] [place] [address] [place] TB GAMMA INTERPRETATION Infection with M. tuberculosis complex is unlikely. If latent tuberculosis infection is highly suspected, a negative result does not rule out the infection. Specimens from immunocompromised patients and those <5 years of age may show false negative results. In case of a contact investigation, please repeat 8-12 weeks after a known exposure. Normal [facility] Comment on above: Order Comment: Elmer murphy Type: BLOOD SPECIMEN Ordering Facility: [facility] Address: [address] [place] [address] Performed By: #### I NFTBP #### [facility] CLIA [id number] [address] [place] [address] OF [facility] TB NIL 0.01 IU/mL Normal <=8.00 [facility] Comment on above: Order Comment: Coreyi men Type: BLOOD SPECIMEN Ordering Facility: [facility] Address: [address] [place] [address] Performed By: #### I NFTBP #### [facility] CLIA [id number] [address] [place] [address] [place] TB1 AG MINUS NIL 0.00 IU/mL Normal <0.35 [facility] Comment on above: Order Comment: Speci men Type: BLOOD SPECIMEN Ordering Facility: [facility] Address: [address] [place] [address] Performed By: #### I NFTBP #### [facility] CLIA [id number] [address] [place] [address] [place] TB2 AG MINUS NIL 0.00 IU/mL Normal <0.35 [facility] Comment on above: Order Comment: Speci men Type: BLOOD SPECIMEN Ordering Facility: [facility] Address: [address] [place] [address] Performed By: #### I NFTBP #### [facility] CLIA [id number] [address] [place] [address] [place] CBC W Auto Differential pane l (Bld)on 12-09-2024 Basophils (Bld) [#/Vol] 10*3/uL Normal <0.11 [facility] Comment on above: Order Comment: Speci men Type: BLOOD SPECIMENOrdering Facility: [facility] Address: [address] [place] [address] Performed By: #### 5 7021-8 ####[facility] [id number] [place] [address] [place] Basophils/100 WBC (Bld) 0.4 % Normal [facility] Comment on above: Order Comment: Speci men Type: BLOOD SPECIMENOrdering Facility: [facility] Address: [address] [place] [address] Performed By: #### 5 7021-8 ####[facility]CLIA [id number] [place] [address] [place] Differential cell count method Nom (Bld) Auto Normal [facility] Comment on above: Order Comment: Speci men Type: BLOOD SPECIMENOrdering Facility: [facility] Address: [address] [place] [address] Performed By: #### 5 7021-8 ####[facility]IA [id number] [place] [address] [place] Eosinophils (Bld) [#/Vol] 0.06 10*3/uL Normal <0.46 [facility] Comment on above: Order Comment: Speci men Type: BLOOD SPECIMENOrdering Facility: [facility] Address: [address] [place] [address] Performed By: #### 5 7021-8 ####[facility] LABCLIA [id number] [place] [address] [place] Eosinophils/100 WBC (Bld) 1.2 % Normal [facility] Comment on above: Order Comment: Speci men Type: BLOOD SPECIMENOrdering Facility: [facility] Address: [address] [place] [address] Performed By: #### 5 7021-8 ####[facility]CLIA [id number] [place] [address] [place] Erythrocyte distribution width (RBC) [Ratio] 13.4 % Normal 11.5-15.0 [facility] Comment on above: Order Comment: Speci men Type: BLOOD SPECIMENOrdering Facility: [facility] Address: [address] [place] [address] Performed By: #### 5 7021-8 ####[facility] LABCLIA [id number] [place] [address] [place] Hematocrit (Bld) [Volume fraction] 40.2 % Normal 36.0-46.0 [facility] Comment on above: Order Comment: Speci men Type: BLOOD SPECIMENOrdering Facility: [facility] Address: [address] [place] [address] Performed By: #### 5 7021-8 ####[facility] LABCLIA [id number] [place] [address] [place] Hemoglobin (Bld) [Mass/Vol] 12.8 g/dL Normal 11.5-15.5 [facility] Comment on above: Order Comment: Speci men Type: BLOOD SPECIMENOrdering Facility: [facility] Address: [address] [place] [address] Performed By: #### 5 7021-8 ####[facility] LABCLIA [id number] [place] [address] [place] Immature granulocytes (Bld) [#/Vol] 10*3/uL Normal <0.10 [facility] Comment on above: Order Comment: Speci men Type: BLOOD SPECIMENOrdering Facility: [facility] Address: [address] [place] [address] Performed By: #### 5 7021-8 ####[facility]CLIA [id number] [place] [address] [place] Immature granulocytes/100 WBC (Bld) 0.4 % Normal [facility] Comment on above: Order Comment: Speci men Type: BLOOD SPECIMENOrdering Facility: [facility] Address: [address] [place] [address] Performed By: #### 5 7021-8 ####[facility]CLIA [id number] [place] [address] [place] Lymphocytes (Bld) [#/Vol] 1.36 10*3/uL Normal 1.00-4.00 [facility] Comment on above: Order Comment: Speci men Type: BLOOD SPECIMENOrdering Facility: [facility] Address: [address] [place] [address] Performed By: #### 5 7021-8 ####[facility]CLIA [id number] [address] [place] Lymphocytes/100 WBC (Bld) 26.4 % Normal [facility] Comment on above: Order Comment: Speci men Type: BLOOD SPECIMENOrdering Facility: [facility] Address: [address] [place] [address] Performed By: #### 5 7021-8 ####[facility]CLIA [id number] [place] [address] [place] MCH (RBC) [Entitic mass] 28.7 pg Normal 26.0-34.0 [facility] Comment on above: Order Comment: Speci men Type: BLOOD SPECIMENOrdering Facility: [facility] Address: [address] [place] [address] Performed By: #### 5 7021-8 ####[facility] LABCLIA [id number] [place] [address] [place] MCHC (RBC) [Mass/Vol] 31.8 g/dL Normal 30.5-36.0 [facility] Comment on above: Order Comment: Speci men Type: BLOOD SPECIMENOrdering Facility: [facility] Address: [address] [place] [address] Performed By: #### 5 7021-8 ####[facility] LABCLIA [id number] [place] [address] [place] MCV (RBC) [Entitic vol] 90.1 fL Normal 80.0-100.0 [facility] Comment on above: Order Comment: Speci men Type: BLOOD SPECIMENOrdering Facility: [facility] Address: [address] [place] [address] Performed By: #### 5 7021-8 ####[facility] LABCLIA [id number] [place] [address] [place] Monocytes (Bld) [#/Vol] 0.51 10*3/uL Normal <0.87 [facility] Comment on above: Order Comment: Speci men Type: BLOOD SPECIMENOrdering Facility: [facility] Address: [address] [place] [address] Performed By: #### 5 7021-8 ####[facility]CLIA [id number] [place] [address] [place] Monocytes/100 WBC (Bld) 9.9 % Normal [facility] Comment on above: Order Comment: Speci men Type: BLOOD SPECIMENOrdering Facility: [facility] Address: [address] [place] [address] Performed By: #### 5 7021-8 ####[facility] LABCLIA [id number] [place] [address] [place] Neutrophils (Bld) [#/Vol] 3.18 10*3/uL Normal 1.45-7.50 [facility] Comment on above: Order Comment: Speci men Type: BLOOD SPECIMENOrdering Facility: [facility] Address: [address] [place] [address] Performed By: #### 5 7021-8 ####[facility]CLIA [id number] [place] [address] [place] Neutrophils/100 WBC (Bld) 61.7 % Normal [facility] Comment on above: Order Comment: Speci men Type: BLOOD SPECIMENOrdering Facility: [facility] Address: [address] [place] [address] Performed By: #### 5 7021-8 ####[facility] LABCLIA [id number] [place] [address] [place] Nucleated RBC (Bld) [#/Vol] 10*3/uL Normal <0.01 [facility] Comment on above: Order Comment: Speci men Type: BLOOD SPECIMENOrdering Facility: [facility] Address: [address] [place] [address] Performed By: #### 5 7021-8 ####[facility] LABCLIA [id number] [place] [address] [place] Nucleated RBC/100 WBC (Bld) [Ratio] 0.0 /100 WBC Normal [facility] Comment on above: Order Comment: Speci men Type: BLOOD SPECIMENOrdering Facility: [facility] Address: [address] [place] [address] Performed By: #### 5 7021-8 ####[facility] LABCLIA [id number] [place] [address] [place] Platelet mean volume (Bld) [Entitic vol] 12.1 fL Normal 9.0-12.7 [facility] Comment on above: Order Comment: Speci men Type: BLOOD SPECIMENOrdering Facility: [facility] Address: [address] [place] [address] Performed By: #### 5 7021-8 ####[facility] LABCLIA [id number] [place] [address] [place] Platelets (Bld) [#/Vol] 230 10*3/uL Normal 150-400 [facility] Comment on above: Order Comment: Speci men Type: BLOOD SPECIMENOrdering Facility: [facility] Address: [address] [place] [address] Performed By: #### 5 7021-8 ####[facility] LABCLIA [id number] [place] [address] [place] RBC (Bld) [#/Vol] 4.46 10*6/uL Normal 3.90-5.20 [facility] Comment on above: Order Comment: Speci men Type: BLOOD SPECIMENOrdering Facility: [facility] Address: [address] [place] [address] Performed By: #### 5 7021-8 ####[facility] LABCLIA [id number] [place] [address] [place] WBC (Bld) [#/Vol] 5.15 10*3/uL Normal 3.70-11.00 [facility] Comment on above: Order Comment: Speci men Type: BLOOD SPECIMENOrdering Facility: [facility] Address: [address] [place] [address] Performed By: #### 5 7021-8 ####[facility] LABCLIA [id number] [place] [address] [place] Comprehensive metabolic 2000 panelon 12-09-2024 Albumin [Mass/Vol] 4.5 g/dL Normal 3.9-4.9 [facility] Comment on above: Order Comment: Speci men Type: BLOOD SPECIMENOrdering Facility: [facility] Address: [address] [place] [address] Performed By: #### 2 4323-8 ####[facility]CLIA [id number] [place] [address] [place] ALP [Catalytic activity/Vol] 83 U/L Normal 34-123 [facility] Comment on above: Order Comment: Speci men Type: BLOOD SPECIMENOrdering Facility: [facility] Address: [address] [place] [address] Performed By: #### 2 4323-8 ####[facility]CLIA [id number] [place] [address] [place] ALT [Catalytic activity/Vol] 15 U/L Normal 7-38 [facility] Comment on above: Order Comment: Speci men Type: BLOOD SPECIMENOrdering Facility: [facility] Address: [address] [place] [address] Performed By: #### 2 4323-8 ####[facility]CLIA [id number] [place] [address] [place] Anion gap [Moles/Vol] 13 mmol/L Normal 8-15 [facility] Comment on above: Order Comment: Speci men Type: BLOOD SPECIMENOrdering Facility: [facility] Address: [address] [place] [address] Performed By: #### 2 4323-8 ####[facility] LABCLIA [id number] [place] [address] [place] AST [Catalytic activity/Vol] 16 U/L Normal 13-35 [facility] Comment on above: Order Comment: Speci men Type: BLOOD SPECIMENOrdering Facility: [facility] Address: [address] [place] [address] Performed By: #### 2 4323-8 ####[facility]CLIA [id number] [place] [address] [place] Bilirubin [Mass/Vol] 0.4 mg/dL Normal 0.2-1.3 [facility] Comment on above: Order Comment: Speci men Type: BLOOD SPECIMENOrdering Facility: [facility] Address: [address] [place] [address] Performed By: #### 2 4323-8 ####[facility]CLIA [id number] [place] [address] [place] Calcium [Mass/Vol] 10.2 mg/dL Normal 8.5-10.2 [facility] Comment on above: Order Comment: Speci men Type: BLOOD SPECIMENOrdering Facility: [facility] Address: [address] [place] [address] Performed By: #### 2 4323-8 ####[facility] LABCLIA [id number] [place] [address] [place] Chloride [Moles/Vol] 102 mmol/L Normal 98-107 [facility] Comment on above: Order Comment: Speci men Type: BLOOD SPECIMENOrdering Facility: [facility] Address: [address] [place] [address] Performed By: #### 2 4323-8 ####[facility] LABCLIA [id number] [place] [address] [place] CO2 [Moles/Vol] 26 mmol/L Normal 22-30 [facility] Comment on above: Order Comment: Speci men Type: BLOOD SPECIMENOrdering Facility: [facility] Address: [address] [place] [address] Performed By: #### 2 4323-8 ####[facility] LABCLIA [id number] [address] [place] OF [facility] Creatinine [Mass/Vol] 0.56 mg/dL Low 0.58-0.96 [facility] Comment on above: Order Comment: Speci men Type: BLOOD SPECIMENOrdering Facility: [facility] Address: [address] [place] [address] Performed By: #### 2 4323-8 ####[facility] LABCLIA [id number] [place] [address] [place] eGFRcr SerPlBld CKD-EPI 2020 108 mL/min/1.73m??? Normal >=60 [facility] Comment on above: Order Comment: Speci men Type: BLOOD SPECIMENOrdering Facility: [facility] Address: [address] [place] [address] Result Comment: Ivett mated Glomerular Filtration Rate (eGFR) is calculated using the 2020 CKD-EPI creatinine equation. This equation utilizes serum creatinine, sex, and age as parameters. The creatinine assay has traceable calibration to isotope dilution-mass spectrometry. Refer to KDIGO guidelines for clinical interpretation. In patients with unstable renal function, e.g. those with acute kidney injury, the eGFR may not accurately reflect actual GFR. Performed By: #### 2 4323-8 ####[facility] LABCLIA [id number] [place] [address] [place] Glucose [Mass/Vol] 128 mg/dL High 74-99 [facility] Comment on above: Order Comment: Elmer men Type: BLOOD SPECIMENOrdering Facility: [facility] Address: [address] [place] [address] Result Comment: The [place] [employer] (ADA) provides guidance for cutoff values for fasting glucose and random glucose. The ADA defines fasting as no caloric intake for at least 8 hours. Fasting plasma glucose results between 100 to 125 mg/dL indicate increased risk for diabetes (prediabetes). Fasting plasma glucose results greater than or equal to 126 mg/dL meet the criteria for diagnosis of diabetes. In the absence of unequivocal hyperglycemia, results should be confirmed by repeat testing. In a patient with classic symptoms of hyperglycemia or hyperglycemic crisis, random plasma glucose results greater than or equal to 200 mg/dL meet the criteria for diagnosis of diabetes. Reference: Standards of Medical Care in Diabetes 2016, [place] [employer]. Diabetes Care. 2016.39(Suppl 1). Performed By: #### 2 4323-8 ####[facility] LABCLIA [id number] [place] [address] [place] Potassium [Moles/Vol] 4.0 mmol/L Normal 3.7-5.1 [facility] Comment on above: Order Comment: Elmer murphy Type: BLOOD SPECIMENOrdering Facility: [facility] Address: [address] [place] [address] Performed By: #### 2 4323-8 ####[facility] LABCLIA [id number] [place] [address] [place] Protein [Mass/Vol] 7.5 g/dL Normal 6.3-8.0 [facility] Comment on above: Order Comment: Elmer murphy Type: BLOOD SPECIMENOrdering Facility: [facility] Address: [address] [place] [address] Performed By: #### 2 4323-8 ####[facility] LABCLIA [id number] [place] [address] [place] Sodium [Moles/Vol] 141 mmol/L Normal 136-144 [facility] Comment on above: Order Comment: Speci men Type: BLOOD SPECIMENOrdering Facility: [facility] Address: [address] [place] [address] Performed By: #### 2 4323-8 ####[facility] LABCLIA [id number] [place] [address] [place] Urea nitrogen [Mass/Vol] 11 mg/dL Normal 7-21 [facility] Comment on above: Order Comment: Speci men Type: BLOOD SPECIMENOrdering Facility: [facility] Address: [address] [place] [address] Performed By: #### 2 4323-8 ####[facility] LABCLIA [id number] [place] [address] [place] HBV core Ab Ser Qlon 025 HBV core Ab Ql (S) Negative Normal Negative [facility] Comment on above: Order Comment: Speci men Type: BLOOD SPECIMEN [facility] Address: [address] [place] [address] Result Comment: No e vidence of current or past infection with Hepatitis B virus. Should recent infection be suspected, repeat testing may be considered 3-4 weeks after this draw. Performed By: #### I NFTBP #### [facility] CLIA [id number] [address] [place] [address] [place] HBV surface Ab Ql (S)on 11-13 HBV surface Ab Qn (S) <8.00 Normal [facility] Comment on above: Order Comment: [facility] Type: BLOOD SPECIMEN [facility] Address: [address] [place] [address] Result Comment: <8 m IU/mL: No serological evidence of immunity to Hepatitis B Virus. >/= 8 to <12 mIU/mL: No serological evidence of immunity to Hepatitis B Virus. >/= 12 mIU/mL: Consistent with serological evidence of immunity to Hepatitis B Virus. Performed By: #### I NFTBP #### [facility] CLIA [id number] [address] [place] [address] [place] HBV surface Ab Ser Qlon 11-13 HBV surface Ab Ql (S) Negative Normal [facility] Comment on above: Order Comment: Speci men Type: BLOOD SPECIMEN [facility] Facility: [facility] Address: [address] [place] [address] Result Comment: No s erological evidence of immunity to Hepatitis B Virus. Performed By: #### I NFTBP #### [facility] CLIA [id number] [address] [place] [address] [place] HBV surface Ag Ser Qlon 11-13 HBV surface Ag Ql (S) Negative Normal Negative [facility] Comment on above: Order Comment: Speci men Type: BLOOD SPECIMEN [facility] Facility: [facility] Address: [address] [place] [address] Performed By: #### I NFTBP #### [facility] CLIA [id number] [address] [place] [address] [place] HCV Ab Ser Qlon 12-09-2024 HCV Ab Ql (S) Negative Normal Negative [facility] Comment on above: Order Comment: Speci men Type: BLOOD SPECIMENOrdering Facility: [facility] Address: [address] [place] [address] Result Comment: The result suggests no evidence of infection with Hepatitis C virus. Should recent infection be suspected, repeat testing may be considered 4-6 weeks after this draw. Performed By: #### 1 6128-1 ####[facility] LABCLIA [id number] [place] [address] [place] HIV 1+2 Ab IA Qlon HIV 1 and 2 Ab IA.rapid Nom (S/P/Bld) Normal [facility] Comment on above: Order Comment: Speci men Type: BLOOD SPECIMEN [facility]: [facility] Address: [address] [place] [address] Result Comment: Test not indicated. Performed By: #### I NFTBP #### [facility] CLIA [id number] [address] [place], [place] [address] [place] HIV 1+2 Ab+HIV1 p24 Ag IA Ql Non-Reactive Normal Nonreactive [facility] Comment on above: Order Comment: Speci men Type: BLOOD SPECIMEN [facility]: [facility] Address: [address] [place] [address] Performed By: #### I NFTBP #### [facility] CLIA [id number] [address] [place] [address] [place] HIV immunoassay testing algorithm interpretation (S/P/Bld) [Interp] Normal [facility] Comment on above: Order Comment: Speci men Type: BLOOD SPECIMEN [facility] [facility] Address: [address] [place] [address] Result Comment: No e vidence of HIV-1 or HIV-2 infection. Should recent infection be suspected, repeat testing may be considered 2-3 weeks after this draw. [place] Rev. Code 3701.243(E): This information has been disclosed to you from confidential records protected from disclosure by state law. You shall make no further disclosure of this information without the specific, written, and informed release of the individual to whom it pertains or as otherwise permitted by state law. A general authorization for the release of medical or other information is not sufficient for the purpose of the release of HIV test results or diagnoses. Performed By: #### I NFTBP #### [facility] CLIA [id number] [address] [place] [address] [place] IMMUNOGLOBULINS,IGG,IGA,IGMo n 12-09-2024 IgA [Mass/Vol] 208 mg/dL Normal 70-400 [facility] Comment on above: Order Comment: Speci men Type: BLOOD SPECIMEN Ordering Facility: [facility] Address: [address] [place] [address] Performed By: #### I NFTBP #### [facility] CLIA [id number] [address] [place] [address] [place] IgG [Mass/Vol] 1143 mg/dL Normal 700-1600 [facility] Comment on above: Order Comment: Speci men Type: BLOOD SPECIMEN Ordering Facility: [facility] Address: [address] [place] [address] Performed By: #### I NFTBP #### [facility] CLIA [id number] [address] [place] [address] [place] IgM [Mass/Vol] 235 mg/dL High 40-230 [facility] Comment on above: Order Comment: Speci men Type: BLOOD SPECIMEN Ordering Facility: [facility] Address: [address] [place] [address] Performed By: #### I NFTBP #### [facility] CLIA [id number] [address] [place] [address] [place] NEUROFILAMENT LIGHT(NFL)RE STRICTED TO NEUROLOGYon 12-09-2024 Nfl chain SerPl IA-mCnc 3.04 pg/mL High 0.00-2.99 [facility] Comment on above: Order Comment: Speci men Type: BLOOD SPECIMENOrdering Facility: [facility] Address: [address] [place] [address] Result Comment: Test performed by [employer] Electrochemiluminescence Immunoassay (ECLIA). Values obtained with different assay methods or kits cannot be used interchangeably. Performed By: #### N FLLCP ####[facility] [id number] [facility] [place] [address] STRATIFY JCV DXSELECT ANTIBO DY AND INDEX WITH REFLEX TO INHIBITION ASSAYon 12-09-2024 JCV ANTIBODY Positive Abnormal [facility] Comment on above: Order Comment: Speci men Type: BLOOD SPECIMENOrdering Facility: [facility] Address: [address] [place] [address] Result Comment: Index interpretive criteria: <0.20 negative 0.20-0.40 indeterminate >0.40 positive INTERPRETATION Negative: Antibodies to JCV not detected. Indeterminate: Low level reactivity detected, see Inhibition Assay result below for the final antibody result. Positive: Antibodies to PETERSON virus (JCV) detected indicating the patient has been exposed to JCV at an undetermined time. The STRATIFY JCV(R) DxSelect(TM) Antibody Test is an enzyme-linked immunosorbent assay (ACACIA) designed to detect JCV antibodies to help identify individuals who have been exposed to the virus. Samples with low level reactivity in the detection assay are retested in a confirmation (inhibition) assay to confirm presence or absence of JCV-specific antibodies. Retrospective analyses of post marketing data from various sources, including observational studies and spontaneous reports obtained worldwide, suggest that the risk of developing PML may be associated with relative levels of serum anti-JCV antibody as measured by anti-JCV antibody index.(1) (1) TYSABRI(natalizumab)US Prescribing Information TEST PERFORMED AT: [id number] [facility] [address] [place] [address] [employer]: Gertrudis Hart MD, PhD Performed By: #### J CVIDX ####[facility] [id number] [place] [address] JCV INDEX VALUE 0.89 High [facility] Comment on above: Order Comment: Elmer murphy Type: BLOOD SPECIMENOrdering Facility: [facility] Address: [address] [place] [address] Performed By: #### J CVIDX ####[employer] [facility] [id number] [place] [address] VARICELLA ZOSTER IGGon 12-09 VARICELLA ZOSTER IGG, QUAL Positive Normal Positive [facility] Comment on above: Order Comment: Elmer murphy Type: BLOOD SPECIMEN Ordering Facility: [facility] Address: [address] [place] [address] Result Comment: The result suggests recent or past exposure to Varicella-Zoster virus or chickenpox vaccination or zoster vaccination. Positive result may also be seen due to presence of passively-transferred antibodies. Please correlate with patient's history. Performed By: #### V ZVG2 #### [facility] CLIA [id number] [address] [place] [address] [place] CNOVon 12-05-2024 CNOV Office Visit (NMMDNA ) -- JOSÉ MIGUEL CEDILLO ([id number]) 1970 F Date Time Provider Department 12/05/24 1:30 PM LISA JAIMES During your visit today, we recorded the following information about you: Pulse Blood pressure Weight 57/minute 175/72 107.3 kg Lisa Jaimes MD 12/05/2024 2:22 PM Signed [facility] NEW PATIENT VISIT REFERRAL SOURCE: SELF DIAGNOSIS: Multiple Sclerosis DISEASE SUMMARY Date of onset: Date of diagnosis: Disease course at onset: Relapsing-Remitting Current disease course: Relapsing-Remitting Previous disease therapies: - IFN (stopped due to injection fatigue) - Tecfidera (09/2019 - 05/2022; stopped due to insurance issues) Current disease therapy: Tecfidera (01/2023 - current) Most recent MRI brain: 08/06/2023 (stable vs. 05/07/2020, 09/05/2019) Most recent MRI cervical spine: 08/06/2023 (stable vs. 06/06/2019: multifocal cord lesions) CSF: None JCV serology result and date: 09/05/2019 (positive, 1.31) An opinion on this 54 year old right handed female was requested by the patient to re-establish care for MS at the [facility]. The patient was not accompanied by anyone. Previous records (physician notes, laboratory reports, and radiology reports) and imaging studies were reviewed and summarized. My recommendations will be communicated back to the patient's physician(s) via electronic medical record. Follow-up is expected to be with me at the [facility]. HISTORY: Patient previously followed by Dr. Rucker and Dr. Zaman at [place] but would like to establish care at [facility] due to proximity. She was reportedly diagnosed with optic neuritis and subsequently MS in . She was initially started on subQ IFN in but stopped after one year due to injection fatigue. She had recalled another relapse in 2002 and another in 2006 treated with steroids. Reportedly she had no further symptoms but she established care at [place] in 2019 as she had noted recent new numbness in the RLE and RUE as well as OS light flashes. She was seen by gerentological physiotherapist who diagnosed her with optic neuritis and recommended evaluation at [place]. She underwent updated neuroimaging MRI brain and MRI cervical spine demonstrating new intracranial lesions and new degenerative spine disease vs. 2007. MRI orbit with left optic neuritis. She was subsequently started on Tecfidera as patient preferred oral option. She had a period of treatment lapse in 2022 due to insurance coverage but established care with Dr. Rucker who resumed Tecfidera. MRIs have reassuringly remained stable. She was last seen 08/07/2023. In August 2024 she was admitted to hospital with sepsis suspected to be from sinusitis. She had recently all teeth removed in October due to poor dental health. She has had a stable cyst on her buttocks for 2 years without concerns for infection. She has been referred to general surgery but has not scheduled yet. She denies any major changes in her MS. She continues to take Tecfidera daily without missing doses. She denies any major side effects related to medication. She denies neck pain or radicular arm symptoms. Current MS symptoms: Left drop foot (about 5 years) RUE and RLE numbness Imbalance Urinary retention and hesitation; no frequent incontinence She denies smoking history (quit in October 2024). She denies significant alcohol use. She is currently on disability (previously clerical and administrative workers). Neuro-QoL Functions (higher=better functioning) Flowsheet [facility] Office Visit from 12/05/2024 in Neurology Appointment from 11/06/2024 in [facility] Office Visit from 04/17/2022 in [facility] Upper Extremity Domain T Score 57 50 57 Lower Extremity Domain T Score 38 34 43 Cognitive Function Domain T Score 50 49 58 Positive Affect Well Being T Score -- -- -- Ability To Participate In Social Roles T Score 47 47 42 Satisfaction With Social Roles T Score 43 42 41 Neuro-QoL Symptoms (higher=worse symptoms) Flowsheet [facility] Office Visit from 12/05/2024 in Neurology Appointment from 11/06/2024 in [facility] Office Visit from 04/17/2022 in [facility] Sleep Domain T Score 39 42 40 Fatigue Domain T Score 45 42 43 Anxiety Domain T Score 41 42 41 Depression Domain T Score 51 49 49 Stigma Domain T Score 47 50 43 Emotional Behavior Dyscontrol T Score -- -- -- View Neuro QoL Trends - Higher is Better View Neuro QoL Trends - Lower is Better has a past medical history of Multiple sclerosis, Narcolepsy and cataplexy (HCC), and Psoriasis. She has no past medical history of Anxiety, Atrial fibrillation (HCC), Cancer (HCC), Chronic obstructive pulmonary disease (COPD) (HCC), Chronic renal insufficiency, Congestive heart failure (HCC), Coronary artery disease, Depression, Diabetes (HCC), Epilepsy (HCC), Hyperlipidemia, Hypertension, intermediate (current) use of sys (more content not included)... Normal [facility] CNPNon 09-11-2024 CNPN Telephone (NEMSMN) -- JOSÉ MIGUEL CEDILLO ([id number]) 1970 F Date Time Provider Department 09/11/24 REBECCA YOUNG During your visit today, we recorded the following information about you: Meghan Mohan 09/11/2024 2:48 PM Signed left vm for patient about scheduling follow up with Rebecca Young per rx reponse. called [phone] Allergies As of Date: 09/11/2024 (No Known Allergies) Date Reviewed: 08/07/2023 Reviewed by: Reagan Baird MA - Fully Assessed Reason for Visit: Appointment [186] Cmt: left vm for patient about scheduling follow up with Rebecca Young per rx reponse. called [phone] Prescriptions as of 09/11/2024 - dimethyl fumarate (TECFIDERA) [address] TAKE ONE CAPSULE BY MOUTH TWICE DAILY - ibuprofen (MOTRIN) 600 mg tablet Take 1 tablet by mouth every 8 hours as needed for pain. - Cholecalciferol, Vitamin D3, (VITAMIN D) 25 mcg (1,000 unit) cap Take 5 capsules by mouth once daily. - OTC NUTRITIONAL SUPPLEMENT Take 1 tablet by mouth twice daily. - rosuvastatin 10 mg cpSP - metFORMIN ER (GLUCOPHAGE XR) 500 mg 24 hr tablet Take 1,000 mg by mouth once daily. - buPROPion XL (WELLBUTRIN XL) 150 mg 24 hr tablet Take 150 mg by mouth twice daily. 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] 11/07/2019 Diagnosed: 01/31/2023 Dental caries [K02.9] 01/05/2023 Diagnosed: 01/31/2023 Narcolepsy and cataplexy [G47.411] 02/13/1996 Diagnosed: 01/31/2023 Encounter Status:Closed by MEGHAN MOHAN [facility]11/[facility] Tele[facility] (AnctuN) -- JOSÉ MIGUEL CEDILLO ([id number]) 1970 F Date Time Provider Department 04/21/24 [facility] During your visit today, we recorded the following information about you: Viktoria Castellano 04/21/2024 11:50 AM Signed Moncho Call Name of caller : Jayne Relationship to patient: Carlos Return call phone number : [phone] Reason for call : Call from [facility] following up on a request for the pt's Questionnaire to be completed and the FCE sheet for their disability hearing before 04/23/24 refaxed Shelly Tesfaye 04/25/2024 9:25 AM Signed Jayne calling again to see if this form is going to be completed since patient had the FCE done. Please let her know today. Geovanna Justin HUC 04/25/2024 1:22 PM Signed Attempted to call Jayne no answer left number to call back Geovanna Justin HUC 04/28/2024 11:48 AM Signed Called again to ask for forms to be faxed again Jayne advised they will fax now. Allergies As of Date: 04/21/2024 (No Known Allergies) Date Reviewed: 08/07/2023 Reviewed by: Reagan Baird MA - Fully Assessed Reason for Visit: Forms [913] Cmt: Call from [employer] following up on a request for the pt's Questionnaire to be completed and the FCE sheet for their disability hearing before 04/23/24 refaxed Prescriptions as of 04/28/2024 - dimethyl fumarate (TECFIDERA) [address] Take 1 capsule by mouth two times a day. - ibuprofen (MOTRIN) 600 mg tablet Take 1 tablet by mouth every 8 hours as needed for pain. - Cholecalciferol, Vitamin D3, (VITAMIN D) 25 mcg (1,000 unit) cap Take 5 capsules by mouth once daily. - OTC NUTRITIONAL SUPPLEMENT Take 1 tablet by mouth twice daily. - rosuvastatin 10 mg cpSP - metFORMIN ER (GLUCOPHAGE XR) 500 mg 24 hr tablet Take 1,000 mg by mouth once daily. - buPROPion XL (WELLBUTRIN XL) 150 mg 24 hr tablet Take 150 mg by mouth twice daily. 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] 11/07/2019 Diagnosed: 01/31/2023 Dental caries [K02.9] 01/05/2023 Diagnosed: 01/31/2023 Narcolepsy and cataplexy [G47.411] 02/13/1996 Diagnosed: 01/31/2023 Encounter Status:Closed by GEOVANNA JUSTIN on 04/25/24 Normal [facility] CNTHERAPYon 04-04-2024 CNTHERAPY OT/PT/Speech Visit (OTWCMN) -- JOSÉ MIGUEL CEDILLO ([id number]) 1970 F Date Time Provider Department 04/04/24 12:30 PM JEANETTECHRISTEL PAREDES TACOS Date Time Provider Department Center 04/04/2024 12:30 PM [id number] BOYCE ANNETTECMFranches[facility] Main - C Bld Reason for Visit: Functional Capacity Eval [3549] Visit Diagnosis:Multiple sclerosis (HCC) [G35] Allergies As of Date: 04/04/2024 (No Known Allergies) Date Reviewed: 08/07/2023 Reviewed by: Reagan Baird MA - Fully Assessed Prescriptions as of 04/04/2024 - ibuprofen (MOTRIN) 600 mg tablet Take 1 tablet by mouth every 8 hours as needed for pain. - dimethyl fumarate (TECFIDERA) [address] Take 1 capsule (240 mg) by mouth two times a day. - Cholecalciferol, Vitamin D3, (VITAMIN D) 25 mcg (1,000 unit) cap Take 5 capsules by mouth once daily. - OTC NUTRITIONAL SUPPLEMENT Take 1 tablet by mouth twice daily. - rosuvastatin 10 mg cpSP - metFORMIN ER (GLUCOPHAGE XR) 500 mg 24 hr tablet Take 1,000 mg by mouth once daily. - buPROPion XL (WELLBUTRIN XL) 150 mg 24 hr tablet Take 150 mg by mouth twice daily. Normal [facility] MR Brain WO and W contrast I Von 08-06-2023 * * *Final Report* * * DATE OF EXAM: Aug 06 2023 12:38PM [facility] 0295 - MRI BRAIN WO/W IVCON / PROCEDURE REASON: Multiple sclerosis (HCC) * * * * Physician Interpretation * * * * EXAMINATION: MRI CERVICAL SPINE WO/W IVCON, MRI BRAIN WO/W IVCON HISTORY: Multiple sclerosis. Routine follow-up TECHNIQUE: Brain MRI with demyelinating disease protocol with and without gadolinium. Routine cervical spine protocol with and without gadolinium. MQ: [id number] Contrast: 20 mL Dotarem IV COMPARISON: Brain MRI . Cervical spine MRI 09/05/2019. RESULT: MR BRAIN: Parenchymal Findings: There are multiple foci of hyperintensity on FLAIR and T2 within the white matter, compatible with the clinical diagnosis of multiple sclerosis. New T2 Lesions: None Interval Improvement: None. New Enhancing Lesions: None T2 [place] of Disease: Severe. Parenchymal Volume Loss: Moderate. Other Significant Findings/Site(s) of New T2 Lesions(s): There is interval increase in size of the 24 x 21 mm (AP, TV) minimally peripheral enhancing T2 and FLAIR hyperintense lesion in the left anterior maxilla which demonstrates restricted diffusion when compared to the prior MRI 05/08/2019 which measured 18 x 11 mm.. MR CERVICAL: Counting reference: Craniocervical junction. Anatomic Variants: None. Alignment: There is mild grade 1 anterolisthesis of C3 on C4. There is disc degeneration C2-C7. Craniocervical Junction: Craniocervical junction is normal. Cord Findings: There is unchanged cord signal abnormality C4-C5 to C6-C7. Cord T2 Plaque [place]: None New T2 Lesions: None Interval Cord Improvement: None New Cord Enhancing Lesions: None Cord Volume Loss: Normal morphology for age Bone marrow signal/fracture: There is redemonstration of a T5 intraosseous hemangioma. No evidence of pathologic marrow infiltration. No evidence of prior fracture. Cervical soft tissues: There is an 8 mm low-attenuation lesion in the right thyroid lobe, likely representing a thyroid nodule. The paraspinal soft tissues are within normal limits. Cervical Canal and foramina: C2-C3: Canal and foramina are patent. C3-C4: There is mild bilateral facet arthropathy and disc osteophyte complex resulting in minimal bilateral neural foraminal narrowing. There is no spinal canal stenosis. Slightly progressed. C4-C5: There is mild bilateral facet arthropathy and disc osteophyte complex resulting in partial effacement of ventral dorsal thecal sac, moderate spinal canal stenosis and flattening of the ventral cord and moderate bilateral neural foraminal narrowing. Slightly progressed. C5-C6: There is mild bilateral facet arthropathy and disc osseous complex with a superimposed central disc protrusion resulting in indentation of the ventral cord, moderate spinal canal stenosis mild left and moderate right neural foraminal narrowing. Slightly progressed. C6-C7: There is mild bilateral facet arthropathy and disc osteophyte complex resulting in partial effacement of ventral thecal sac and indentation of the ventral cord, mild to moderate spinal canal stenosis and minimal bilateral neural foraminal narrowing. Slightly progressed. C7-T1: Canal and foramina are patent. DIVISION OF RADIOLOGY Provider, [facility] - 08/06/2023 * * *Final Report* * * DATE OF EXAM: Aug 06 2023 12:38PM AASHISH Garcia - MRI BRAIN WO/W IVCON / PROCEDURE REASON: Multiple sclerosis (HCC) * * * * Physician Interpretation * * * * EXAMINATION: MRI CERVICAL SPINE WO/W IVCON, MRI BRAIN WO/W IVCON HISTORY: Multiple sclerosis. Routine follow-up TECHNIQUE: Brain MRI with demyelinating disease protocol with and without gadolinium. Routine cervical spine protocol with and without gadolinium. MQ: [id number] Contrast: 20 mL Dotarem IV COMPARISON: Brain MRI . Cervical spine MRI 09/05/2019. RESULT: MR BRAIN: Parenchymal Findings: There are multiple foci of hyperintensity on FLAIR and T2 within the white matter, compatible with the clinical diagnosis of multiple sclerosis. New T2 Lesions: None Interval Improvement: None. New Enhancing Lesions: None T2 [place] of Disease: Severe. Parenchymal Volume Loss: Moderate. Other Significant Findings/Site(s) of New T2 Lesions(s): There is interval increase in size of the 24 x 21 mm (AP, TV) minimally peripheral enhancing T2 and FLAIR hyperintense lesion in the left anterior maxilla which demonstrates restricted diffusion when compared to the prior MRI 05/08/2019 which measured 18 x 11 mm.. MR CERVICAL: Counting reference: Craniocervical junction. Anatomic Variants: None. Alignment: There is mild grade 1 anterolisthesis of C3 on C4. There is disc degeneration C2-C7. Craniocervical Junction: Craniocervical junction is normal. Cord Findings: There is unchanged cord signal abnormality C4-C5 to C6-C7. Cord T2 Plaque [place]: None New T2 Lesions: None Interval Cord Improvement: None New Cord Enhancing Lesions: None Cord Volume Loss: Normal morphology for age Bone marrow signal/fracture: There is redemonstration of a T5 intraosseous hemangioma. No evidence of pathologic marrow infiltration. No evidence of prior fracture. Cervical soft tissues: There is an 8 mm low-attenuation lesion in the right thyroid lobe, likely representing a thyroid nodule. The paraspinal soft tissues are within normal limits. Cervical Canal and foramina: C2-C3: Canal and foramina are patent. C3-C4: There is mild bilateral facet arthropathy and disc osteophyte complex resulting in minimal bilateral neural foraminal narrowing. There is no spinal canal stenosis. Slightly progressed. C4-C5: There is mild bilateral facet arthropathy and disc osteophyte complex resulting in partial effacement of ventral dorsal thecal sac, moderate spinal canal stenosis and flattening of the ventral cord and moderate bilateral neural foraminal narrowing. Slightly progressed. C5-C6: There is mild bilateral facet arthropathy and disc osseous complex with a superimposed central disc protrusion resulting in indentation of the ventral cord, moderate spinal canal stenosis mild left and moderate right neural foraminal narrowing. Slightly progressed. C6-C7: There is mild bilateral facet arthropathy and disc osteophyte complex resulting in partial effacement of ventral thecal sac and indentation of the ventral cord, mild to moderate spinal canal stenosis and minimal bilateral neural foraminal narrowing. Slightly progressed. C7-T1: Canal and foramina are patent. IMPRESSION IMPRESSION: Multiple intracranial white matter lesions compatible with multiple sclerosis. No new T2 lesions and no new enhancing lesions. Moderate parenchymal volume loss. Other Significant Intracranial Findings: None Unchanged cord signal abnormality C4-C5 to C6-C7, which may related to compressive myelopathy and/or demyelinating disease. No new T2 intramedullary lesions and no new enhancing intramedullary lesions. No significant volume loss of the upper spinal cord for age. Other Significant Cervical Spine Findings: Multilevel degenerative changes of the cervical spine, most pronounced at C4-C5, C5-C6 and C6-C7, as detailed. Cervical Anatomic Variant: None. Assume 7 cervical vertebrae with counting from the craniocervical junction. *Note: The definition of new T2 Lesions includes both new and enlarging plaques on T2-weighted FLAIR images (new lesions greater than or equal to 5mm3 or an increase in diameter of an existing lesion by greater than or equal to 2mm). [employer] Supervisor: [employer] Transcribe Date/Time: Aug 06 2023 1:22P Dictated by : CHARLOTTE FLOR MD This examination was interpreted and the report reviewed and electronically signed by: CHARLOTTE FLOR MD on Aug 06 2023 1:44PM [facility] MR Cervical spine WO and W shaquille mcrae Neyda 08-06-2023 * * *Final Report* * * DATE OF EXAM: Aug 06 2023 12:38PM [facility] 0298 - MRI CERVICAL SPINE WO/W IVCON / PROCEDURE REASON: Demyelinating disease of central nervous system (HCC) * * * * Physician Interpretation * * * * EXAMINATION: MRI CERVICAL SPINE WO/W IVCON, MRI BRAIN WO/W IVCON HISTORY: Multiple sclerosis. Routine follow-up TECHNIQUE: Brain MRI with demyelinating disease protocol with and without gadolinium. Routine cervical spine protocol with and without gadolinium. MQ: [id number] Contrast: 20 mL Dotarem IV COMPARISON: Brain MRI . Cervical spine MRI 09/05/2019. RESULT: MR BRAIN: Parenchymal Findings: There are multiple foci of hyperintensity on FLAIR and T2 within the white matter, compatible with the clinical diagnosis of multiple sclerosis. New T2 Lesions: None Interval Improvement: None. New Enhancing Lesions: None T2 [place] of Disease: Severe. Parenchymal Volume Loss: Moderate. Other Significant Findings/Site(s) of New T2 Lesions(s): There is interval increase in size of the 24 x 21 mm (AP, TV) minimally peripheral enhancing T2 and FLAIR hyperintense lesion in the left anterior maxilla which demonstrates restricted diffusion when compared to the prior MRI 05/08/2019 which measured 18 x 11 mm.. MR CERVICAL: Counting reference: Craniocervical junction. Anatomic Variants: None. Alignment: There is mild grade 1 anterolisthesis of C3 on C4. There is disc degeneration C2-C7. Craniocervical Junction: Craniocervical junction is normal. Cord Findings: There is unchanged cord signal abnormality C4-C5 to C6-C7. Cord T2 Plaque [place]: None New T2 Lesions: None Interval Cord Improvement: None New Cord Enhancing Lesions: None Cord Volume Loss: Normal morphology for age Bone marrow signal/fracture: There is redemonstration of a T5 intraosseous hemangioma. No evidence of pathologic marrow infiltration. No evidence of prior fracture. Cervical soft tissues: There is an 8 mm low-attenuation lesion in the right thyroid lobe, likely representing a thyroid nodule. The paraspinal soft tissues are within normal limits. Cervical Canal and foramina: C2-C3: Canal and foramina are patent. C3-C4: There is mild bilateral facet arthropathy and disc osteophyte complex resulting in minimal bilateral neural foraminal narrowing. There is no spinal canal stenosis. Slightly progressed. C4-C5: There is mild bilateral facet arthropathy and disc osteophyte complex resulting in partial effacement of ventral dorsal thecal sac, moderate spinal canal stenosis and flattening of the ventral cord and moderate bilateral neural foraminal narrowing. Slightly progressed. C5-C6: There is mild bilateral facet arthropathy and disc osseous complex with a superimposed central disc protrusion resulting in indentation of the ventral cord, moderate spinal canal stenosis mild left and moderate right neural foraminal narrowing. Slightly progressed. C6-C7: There is mild bilateral facet arthropathy and disc osteophyte complex resulting in partial effacement of ventral thecal sac and indentation of the ventral cord, mild to moderate spinal canal stenosis and minimal bilateral neural foraminal narrowing. Slightly progressed. C7-T1: Canal and foramina are patent. DIVISION OF RADIOLOGY Provider, [facility] - 08/06/2023 * * *Final Report* * * DATE OF EXAM: Aug 06 2023 12:38PM [facility] 0298 - MRI CERVICAL SPINE WO/W IVCON / PROCEDURE REASON: Demyelinating disease of central nervous system (HCC) * * * * Physician Interpretation * * * * EXAMINATION: MRI CERVICAL SPINE WO/W IVCON, MRI BRAIN WO/W IVCON HISTORY: Multiple sclerosis. Routine follow-up TECHNIQUE: Brain MRI with demyelinating disease protocol with and without gadolinium. Routine cervical spine protocol with and without gadolinium. MQ: [id number] Contrast: 20 mL Dotarem IV COMPARISON: Brain MRI . Cervical spine MRI 09/05/2019. RESULT: MR BRAIN: Parenchymal Findings: There are multiple foci of hyperintensity on FLAIR and T2 within the white matter, compatible with the clinical diagnosis of multiple sclerosis. New T2 Lesions: None Interval Improvement: None. New Enhancing Lesions: None T2 [place] of Disease: Severe. Parenchymal Volume Loss: Moderate. Other Significant Findings/Site(s) of New T2 Lesions(s): There is interval increase in size of the 24 x 21 mm (AP, TV) minimally peripheral enhancing T2 and FLAIR hyperintense lesion in the left anterior maxilla which demonstrates restricted diffusion when compared to the prior MRI 05/08/2019 which measured 18 x 11 mm.. MR CERVICAL: Counting reference: Craniocervical junction. Anatomic Variants: None. Alignment: There is mild grade 1 anterolisthesis of C3 on C4. There is disc degeneration C2-C7. Craniocervical Junction: Craniocervical junction is normal. Cord Findings: There is unchanged cord signal abnormality C4-C5 to C6-C7. Cord T2 Plaque [place]: None New T2 Lesions: None Interval Cord Improvement: None New Cord Enhancing Lesions: None Cord Volume Loss: Normal morphology for age Bone marrow signal/fracture: There is redemonstration of a T5 intraosseous hemangioma. No evidence of pathologic marrow infiltration. No evidence of prior fracture. Cervical soft tissues: There is an 8 mm low-attenuation lesion in the right thyroid lobe, likely representing a thyroid nodule. The paraspinal soft tissues are within normal limits. Cervical Canal and foramina: C2-C3: Canal and foramina are patent. C3-C4: There is mild bilateral facet arthropathy and disc osteophyte complex resulting in minimal bilateral neural foraminal narrowing. There is no spinal canal stenosis. Slightly progressed. C4-C5: There is mild bilateral facet arthropathy and disc osteophyte complex resulting in partial effacement of ventral dorsal thecal sac, moderate spinal canal stenosis and flattening of the ventral cord and moderate bilateral neural foraminal narrowing. Slightly progressed. C5-C6: There is mild bilateral facet arthropathy and disc osseous complex with a superimposed central disc protrusion resulting in indentation of the ventral cord, moderate spinal canal stenosis mild left and moderate right neural foraminal narrowing. Slightly progressed. C6-C7: There is mild bilateral facet arthropathy and disc osteophyte complex resulting in partial effacement of ventral thecal sac and indentation of the ventral cord, mild to moderate spinal canal stenosis and minimal bilateral neural foraminal narrowing. Slightly progressed. C7-T1: Canal and foramina are patent. IMPRESSION IMPRESSION: Multiple intracranial white matter lesions compatible with multiple sclerosis. No new T2 lesions and no new enhancing lesions. Moderate parenchymal volume loss. Other Significant Intracranial Findings: None Unchanged cord signal abnormality C4-C5 to C6-C7, which may related to compressive myelopathy and/or demyelinating disease. No new T2 intramedullary lesions and no new enhancing intramedullary lesions. No significant volume loss of the upper spinal cord for age. Other Significant Cervical Spine Findings: Multilevel degenerative changes of the cervical spine, most pronounced at C4-C5, C5-C6 and C6-C7, as detailed. Cervical Anatomic Variant: None. Assume 7 cervical vertebrae with counting from the craniocervical junction. *Note: The definition of new T2 Lesions includes both new and enlarging plaques on T2-weighted FLAIR images (new lesions greater than or equal to 5mm3 or an increase in diameter of an existing lesion by greater than or equal to 2mm). Newspaper Distributor Supervisor: [facility] Transcribe Date/Time: Aug 06 2023 1:22P Dictated by : CHARLOTTE FLOR MD This examination was interpreted and the report reviewed and electronically signed by: CHARLOTTE FLOR MD on Aug 06 2023 1:44PM EST [facility] Panel Informationon 08-05 IMPRESSION: Multiple intracranial white matter lesions compatible with multiple sclerosis. No new T2 lesions and no new enhancing lesions. Moderate parenchymal volume loss. Other Significant Intracranial Findings: None Unchanged cord signal abnormality C4-C5 to C6-C7, which may related to compressive myelopathy and/or demyelinating disease. No new T2 intramedullary lesions and no new enhancing intramedullary lesions. No significant volume loss of the upper spinal cord for age. Other Significant Cervical Spine Findings: Multilevel degenerative changes of the cervical spine, most pronounced at C4-C5, C5-C6 and C6-C7, as detailed. Cervical Anatomic Variant: None. Assume 7 cervical vertebrae with counting from the craniocervical junction. *Note: The definition of new T2 Lesions includes both new and enlarging plaques on T2-weighted FLAIR images (new lesions greater than or equal to 5mm3 or an increase in diameter of an existing lesion by greater than or equal to 2mm). Newspaper Distributor Supervisor: [facility] Transcribe Date/Time: Aug 06 2023 1:22P Dictated by : CHARLOTTE FLOR MD This examination was interpreted and the report reviewed and electronically signed by: CHARLOTTE FLOR MD on Aug 06 2023 1:44PM [facility] DIVISION OF RADIOLOGY Brain Enhancing Lesions None [facility] Brain Interval Improvement None [facility] Brain New T2 Lesions None [facility] Brain Other Significant MRI Findings There is interval increase in size of the 24 x 21 mm (AP, TV) minimally peripheral enhancing T2 and FLAIR hyperintense lesion in the left anterior maxilla which demonstrates restricted diffusion when compared to the prior MRI 05/08/2019 which measured 18 x 11 mm.. [facility] Brain Parenchymal Volume Loss Moderate [facility] Brain T2 [place] of Disease Severe [facility] Cervical spine enhancing lesions None [facility] Cervical Spine New T2 Lesions None [facility] Cervical Spine T2 [place] of Disease None [facility] Radiology Study observation (narrative) [facility] Radiology Study observation (narrative) [facility] No Panel InformationOrdered By: [facility] Provider on 08-06-2023 [facility] ALLIED HEALTHon 07-12-2023 ALLIED HEALTH HNO ID: [id number] Author: PATRICE QUEEN CT Service: Radiology Author Type: Technologist Type: Allied Health Filed: 07/12/2023 10:02 Note Text: Radiology Service Progress Note PATIENT NAME: José Miguel Cedillo DATE OF SERVICE: July 12, 2023 TIME: 10:01 AM PATIENT IDENTITY VERIFICATION COMPLETED USING TWO (2) IDENTIFIERS: Name and Date of confirmed by patient verbally and Name and Date of confirmed by identification band. FALL SCREENING: Has the patient had 2 falls in the last year or 1 fall with injury or currently using an Ambulatory Assistive Device (Walker, Cane, Wheelchair, Crutches, etc.)? Emergency Room Patient: Screened in ED PATIENT GENDER DATA: Female. status: : No status: NO. PATIENT RELEVANT IMPLANT DATA REVIEWED: Not Applicable PATIENT PRESENTS WITH AN IMPLANTABLE OR ATTACHED OCEANOGRAPHER ASSISTANT: No RADIOLOGY DEPARTMENT: CT; Exam(s) Completed: Sinus PERIPHERAL IV DATA: Not applicable SIGNED BY: Patrice Queen, NAVDEEP July 12, 2023 10:01 AM Normal [facility] CT SINUS WO IVCONon 07-12-19 CT SINUS WO IVCON * * *Final Report* * * DATE OF EXAM: Jul 12 2023 10:02AM [facility] 0488 - CT SINUS WO IVCON / PROCEDURE REASON: Sinusitis, noninvasive fungal * * * * Physician Interpretation * * * * EXAMINATION: CT SINUS WO IVCON CLINICAL HISTORY: Dental infection, sinusitis TECHNIQUE: Spiral high resolution axial unenhanced CT images were obtained through the paranasal sinuses with sagittal, coronal reconstructions. MQ: CTSI_1 CT Radiation dose: Integrated Dose-Length Product (DLP) for this visit = 133.46 mGy*cm. CT Dose Reduction Employed: No dose reduction techniques were required COMPARISON: None RESULT: Best seen on coronal image 26 and axial image 22, 2.5 x 2.1 cm expansile lucent lesion involving the left maxilla/alveolar ridge with involvement of the root of the left incisor teeth. As seen on sagittal image 45, interruption of the anterior margin of the lesion. There is also evidence of interruption the left anterior hard palate portion of the exam as seen on sagittal image 43. Maxilla: Multiple dental caries with periapical lucencies. Post-Surgical Findings: None Sinus Chambers: Moderate degree of left paranasal sinusitis involving the left maxillary sinus and left ethmoid sinus as well as frontal sinus. Mucosal occlusion of the ostiomeatal complex._Coexisting fluid level in the left maxillary sinus. Right paranasal sinuses are clear Nasal Cavities: Visualized nasal cavities are patent. Nasal septum is midline Developmental Anomalies: None Other: The visualized mastoid air cells and middle ear cavities are clear. Nasopharynx is unremarkable The soft tissues of the face and orbits are within normal limits within the limitations of the study. Visualized lower brain and visualized suprahyoid neck is unremarkable IMPRESSION: 1. Best seen on coronal image 26 and axial image 22, 2.5 x 2.1 cm expansile lucent lesion involving the left maxilla/alveolar ridge with involvement of the root of the left incisor teeth. Cortical interruption of the left anterior hard palate. Leading CT diagnostic consideration is odontogenic cyst. Other lytic lesions such as a plasmacytoma is within the differential diagnosis 2. Left paranasal odontogenic sinusitis with acute and chronic components. 3.Multiple dental caries with periapical lucencies. Newspaper Distributor Supervisor: [facility] Transcribe Date/Time: Jul 12 2023 10:08A Dictated by : BARBARA CORONEL MD This examination was interpreted and the report reviewed and electronically signed by: BARBARA CORONEL MD on Jul 12 2023 10:22AM EST [id number] Normal [facility] ED NOTEon 07-12-2023 ED NOTE HNO ID: [id number] Author: LORENZO ARITA RN Service: Emergency Medicine Author Type: Registered Nurse Type: ED Notes Filed: 07/12/2023 09:36 Note Text: Sent home from [place] ED with no antibiotics per spouse Normal [facility] ED PROV NOTEon 07-12-2023 ED PROV NOTE HNO ID: [id number] Author: LUIZ BLANCO MD Service: Emergency Medicine Author Type: Physician Type: ED Provider Notes Filed: 07/12/2023 10:55 Note Text: ED Provider Note Patient Name: José Miguel Cedillo : 1970 SERVICE DATE: 07/12/23 History Patient presents with: Dental Problem Patient presents emergency department with left-sided facial swelling and upper dental pain. Patient notes that she still having pain yesterday with some mild swelling and notes the swelling has worsened. She notes she was seen at [facility] emergency department yesterday was giving 1 dose of Augmentin but no prescription to go. Patient denies any fevers, chills, difficulty swallowing, stridor, shortness of breath, chest pain, abdominal pain or diarrhea. 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 No pertinent surgical history. FAMILY HISTORY Problem Relation Age of Onset Glaucoma Mother Diabetes Mother Diabetes Father Multiple Sclerosis No Family History Social History Tobacco Use Smoking status: Every Day Smokeless tobacco: Never Vaping Use Vaping Use: Never used Substance and Sexual Activity Alcohol use: Not on file Drug use: Not on file Sexual activity: Not on file ALLERGIES No Known Allergies Review of Systems Constitutional: Negative for chills and fever. HENT: Positive for dental problem, facial swelling and sinus pressure. Eyes: Negative for pain and redness. Respiratory: Negative for shortness of breath and stridor. Cardiovascular: Negative for chest pain and leg swelling. Gastrointestinal: Positive for vomiting. Negative for abdominal pain and diarrhea. Musculoskeletal: Negative for back pain. Skin: Negative for rash and wound. Neurological: Negative for weakness and numbness. Physical Exam Vitals [07/12/23 0933] BP Pulse Temp Temp src Resp SpO2 Weight Height 132/65 (!) 95 -- -- 18 99 % 104.3 kg (230 lb) 1.676 m (5' 6) Physical Exam Vitals and nursing note reviewed. Constitutional: Appearance: Normal appearance. HENT: Head: Normocephalic and atraumatic. Comments: Left maxilla swelling and tenderness. On dental exam the upper teeth are very poorly dictated down to the gumline. There is no obvious abscess palpable. There is no soft tissue swelling on the floor the mouth Nose: Nose normal. Mouth/Throat: Mouth: Mucous membranes are moist. Pharynx: Oropharynx is clear. No posterior oropharyngeal erythema. Eyes: Extraocular Movements: Extraocular movements intact. Conjunctiva/sclera: Conjunctivae normal. Pupils: Pupils are equal, round, and reactive to light. Cardiovascular: Rate and Rhythm: Normal rate and regular rhythm. Heart sounds: No murmur heard. Pulmonary: Effort: Pulmonary effort is normal. Breath sounds: Normal breath sounds. Abdominal: General: Bowel sounds are normal. Palpations: Abdomen is soft. Musculoskeletal: General: No swelling. Normal range of motion. Cervical back: Normal range of motion and neck supple. No tenderness. Lymphadenopathy: Cervical: No cervical adenopathy. Skin: General: Skin is warm and dry. Neurological: General: No focal deficit present. Mental Status: She is alert and oriented to person, place, and time. Psychiatric: Mood and Affect: Mood normal. Behavior: Behavior normal. Diagnostic Testing ED Labs Ordered and Reviewed - No data to display Procedures ED Course / Clinical Impression Clinical Impressions as of 07/12/23 1037 Dental infection Subacute maxillary sinusitis MDM / Disposition / Plan Patient remained stable throughout ED course. She was given a gram of Rocephin IV. CT scan of the sinuses showed sinusitis probably secondary to her teeth. There was a lytic lesion above the left upper incisor that is probably odontogenic in nature. While in the emergency room and her was able to get a dental appointment for next Sunday. They were instructed to keep that appointment. She was started on Augmentin as an outpatient. She is also struck that she may need to see an oral maxillofacial surgeon to have these teeth removed. She was also placed on Motrin and Zofran. Differential Diagnoses - Sinusitis acute on chronic is more likely for the following reason(s): consistent with imaging and suggested by HANDP - Periapical dental infection is more likely for the following reason(s): consistent with imaging and suggested by HANDP - Dental abscess is less likely for the following reason(s): no evidence on imaging Disposition The patient was discharged. Counseled patient and spouse regarding radiology results and suspected diagnosis. SIGNATURE: Luiz Blanco MD - LUIZ BLANCO 07/12/23 1055 Normal [facility] Vital Signs Date Time Vital Sign Value Performing Clinician Chino richardson 08-07-2023 13:59-0400 Body height 167.6 cm Alok Rucker MD Work Phone: [facility] 08-07-2023 13:59-0400 Body mass index (BMI) [Ratio] 37.12 kg/m2 Alok Rucker MD Work Phone: [facility] 08-07-2023 13:59-0400 Body weight 104.33 kg Alok Rucker MD Work Phone: [facility] 08-07-2023 13:59-0400 Diastolic blood pressure 92 mm[Hg] Alok Rucker MD Work Phone: [facility] 08-07-2023 13:59-0400 Heart rate 62 /min Alok Rucker MD Work Phone: [facility] 08-07-2023 13:59-0400 Systolic blood pressure 161 mm[Hg] Alok Rucker MD Work Phone: [facility] 01-01-2023 22:21-0500 Diastolic blood pressure 67 mm[Hg] [facility] 01-01-2023 22:21-0500 Heart rate 88 /min [facility] 01-01-2023 22:21-0500 Respiratory rate 16 /min [facility] 01-01-2023 22:21-0500 SaO2% (BldA) [Mass fraction] 97 % [facility] 01-01-2023 22:21-0500 Systolic blood pressure 140 mm[Hg] [facility] 01-01-2023 20:31-0500 Body height 167.64 cm [facility] 01-01-2023 20:31-0500 Body mass index (BMI) [Ratio] 39.9 kg/m2 [facility] 01-01-2023 20:31-0500 Body temperature 97.9 [degF] [facility] 01-01-2023 20:31-0500 Body weight 112.03 kg [facility] Encounters Encounter Date Encounter Type Care Provider Facility Start: 12-23-2024 ambulatory MOEIN JAIMES Facility:[facility] Start: 12-09-2024 End: 12-09-2024 ambulatory MOEIN JAIMES Facility:[facility] Start: 12-05-2024 End: 12-05-2024 ambulatory MOEIN JAIMES Facility:[facility] Start: 11-12-2024 ambulatory Chalon Alicia Facility:[facility] Start: 10-29-2024 ambulatory Ericka Robotham Facilit y:[facility] Start: 10-07-2024 ambulatory Kylie Vargas Facility:[facility] Start: 09-11-2024 End: 09-11-2024 Telephone encounter Rebecca Young APRN.PUBLICATION DESIGNER Work Phone: [facility] Comment on above: Appointment (left vm for patient about scheduling follow up with Rebecca Young per rx reponse. called [phone]) Start: 04-30-2024 End: 04-30-2024 ambulatory Alok Rucker MD Work Phone: [facility] Comment on above: FCE attached Start: 04-30-2024 End: 04-30-2024 E-mail encounter from caregiver Alok Rucker MD Work Phone: [facility] Start: 04-29-2024 End: 04-30-2024 Chart abstracting Alok Rucker MD Work Phone: [facility] Comment on above: Forms ([place] and Res sler SS disability ) Start: 04-21-2024 End: 04-25-2024 Telephone encounter Rebecca Young APRN.PUBLICATION DESIGNER Work Phone: [facility] Comment on above: Forms (Call from Luigi dunlap following up on a request for the pt's Questionnaire to be completed and the FCE sheet for their disability hearing before 04/23/24 refaxed) Start: 04-15-2024 End: 04-16-2024 Refill Rebecca Young OVERNIGHT ASSOCIATE.PUBLICATION DESIGNER Work Phone: [facility] Comment on above: Med Change Request Start: 04-07-2024 End: 04-11-2024 Chart abstracting Rebecca Young OVERNIGHT ASSOCIATE.PUBLICATION DESIGNER Work Phone: [facility] Comment on above: Medication Preauthor ization (Diemethyl Fumarate - Approved exp 04/11/2024) Start: 04-07-2024 End: 04-11-2024 Telephone encounter Alok Rucker MD Work Phone: [facility] Comment on above: Opened In Error Refill Request Start: 04-04-2024 End: 04-04-2024 ambulatory Christel Boyce OTR/L Work Phone: [facility] Start: 04-04-2024 End: 04-04-2024 Patient encounter procedure Christel Boyce OTR/L Work Phone: [facility] Comment on above: Multiple sclerosis ( HCC) Start: 11-27-2023 End: 12-06-2023 Telephone encounter Alok Rucker MD Work Phone: [facility] Comment on above: Forms (Questionnaire ); Results (Call attempt to schedule physical therapy HANK Posey) Start: 10-31-2023 End: 10-31-2023 Telephone encounter Alok Rucker MD Work Phone: [facility] Start: 10-03-2023 End: 04-30-2024 Chart abstracting Alok Rucker MD Work Phone: [facility] Comment on above: Forms ([place] and Res sler-Social Security ) Start: 08-21-2023 ambulatory Alok Addison Work Phone: [facility] Comment on above: Physical Performance Test. Start: 08-07-2023 End: 08-07-2023 Patient encounter procedure Alok Rucker MD Work Phone: [facility] Comment on above: Multiple sclerosis ( HCC) (Primary Dx); Abnormality of gait; Encounter for long-term (current) use of medications Start: 08-06-2023 End: 08-06-2023 Subsequent hospital visit by physician [employer] [facility] (I-Stat/1.5t) Work Phone: Radiology Comment on above: Multiple sclerosis ( HCC) [G35] Start: 07-12-2023 End: 07-12-2023 Emergency department patient visit [facility] Facility:[facility] Start: 01-17-2023 E-mail encounter fro m caregiver Dara Leos APRN.CHRIS Work Phone: [facility] Start: 01-17-2023 Patient encounter procedure Smita Leos APRN.PUBLICATION DESIGNER Work Phone: Neurology Comment on above: Appointment Start: 01-17-2023 Telephone encounter Dara Fong dmar OVERNIGHT ASSOCIATE.PUBLICATION DESIGNER Work Phone: Neurology Comment on above: Appointment (Called to inform pt that appt for 01/18 has been canceled and rescheduled to 01/19 because she needs to establish care with a physician. LVM with appt details and sent mychart msg ) Appointment (LVM INF ORMING PATIENT THAT WE NEED TO CANCEL HER APPOINTMENT WITH DARA LEOS SEEING SHE NEEDS TO BE SEEN BY A PHYSICIAN FIRST SO I LEFT NUMBER TO CALL SO WE CAN GET HER SCHEDULED ) Start: 01-01-2023 End: 01-01-2023 Emergency department patient visit [facility] Work Phone: Start: 04-17-2022 Telephone encounter Dara Fong jasonr OVERNIGHT ASSOCIATE.PUBLICATION DESIGNER Work Phone: [facility] Comment on above: Appointment (Left pa tient mychart reminder to schedule SW consult with irene Mcfarland) Start: 04-17-2022 End: 04-17-2022 Patient encounter procedure Dara Leos OVERNIGHT ASSOCIATE.PUBLICATION DESIGNER Work Phone: [facility] Comment on above: Narcolepsy and catap lety (Primary Dx); Demyelinating disease of central nervous system (HCC); Medication monitoring encounter; Multiple sclerosis (HCC); Vitamin D deficiency; Malaise and fatigue Start: 03-06-2022 Telephone encounter Dara Retana Ajit gomezr OVERNIGHT ASSOCIATE.PUBLICATION DESIGNER Work Phone: [facility] Comment on above: Appointment (Called patient twice to schedule follow up visit with Dara Leos to continue med. refills. Proactively scheduled patient on 03/14. Left a VM for patient to confirm/lai. ) Start: 03-04-2022 Refill Jania cedeño OVERNIGHT ASSOCIATE.PUBLICATION DESIGNER Work Phone: [facility] Comment on above: Refill Request Start: 01-27-2022 Telephone encounter Ana rodriguez [facility] Comment on above: Appointment (LVM to schedule MRI and Follow Up Per Staff Message) Start: 09-13-2021 Refill Ronni retana MD Work Phone: [facility] Comment on above: Refill Request Start: 06-01-2021 Refill Ruth Og MD Work Phone: [facility] Comment on above: Refill Request Procedures Date Procedure Procedure Detail Performing Clinician Start: 08-06-2023 BRAIN & CERVICAL SPI NE MRI DISCRETE DATA [facility] Provider Start: 08-06-2023 Mri brain brain stem w/o w/contrast material Lory Neville MD Work Phone: Start: 01-29-2020 Adult depression screening assessment Ruth Og MD Work Phone: Plan of Treatment Date Care Activity Detail Author Start: 10-13-2024 Influenza vaccination Influenza Vacc ine (#1) [facility] Start: 04-04-2024 End: 04-04-2024 Patient encounter procedure 04/04/2024 12:30 PM EST OT/PT/Speech Visit [facility] [address] [place], [place] [id number] Christel Boyce OTR/L [address] [place], [place] [id number] PHYSICAL PERFORMANCE TEST [facility] Comment on above: PHYSICAL PERFORMANCE TEST Start: 10-14-2023 Covid-19 Vaccine ( season) Covid-19 Vaccine ( season) [facility] Start: 10-14-2023 Covid-19 Vaccine ( season) Covid-19 Vaccine ( season) [facility] Start: 10-14-2023 Influenza vaccination [facility] Start: 08-27-2023 End: 08-27-2023 ambulatory 08/27/2023 11:00 AM EDT Results Only [place] [facility] [address] [facility] [place] [address] [facility] Start: 08-07-2023 End: 08-07-2023 Patient encounter procedure 08/07/2023 2:15 PM EDT Office Visit [facility] [address] [address] Alok Rucker MD [address] [place] [address] [facility] Comment on above: Start: 08-07-2023 End: 11-06-2023 CBC W Auto Differential panel - Blood COMPLETE BLOOD COUNT AND DIFFERENTIAL Lab Routine Encounter for long-term (current) use of medications Expected: 08/07/2023, Expires: 11/06/2023 [facility] Comment on above: Expected: 08/07/2023 , Expires: 11/06/2023 Start: 08-07-2023 End: 11-06-2023 Comprehensive metabolic 2000 panel - Serum or Plasma COMPREHENSIVE METABOLIC PANEL Lab Routine Encounter for long-term (current) use of medications Expected: 08/07/2023, Expires: 11/06/2023 [facility] Comment on above: Expected: 08/07/2023 , Expires: 11/06/2023 Start: 02-12-2023 Behavioral Health Screening Behavioral Health Screening [facility] Start: 01-01-2023 [facility] Start: 10-13-2022 Covid-19 Vaccine ( season) Covid-19 Vaccine () [facility] Start: 10-13-2022 Influenza vaccination Influenza Vacc ine (#1) [facility] Start: 08-20-2022 DIABETES SCREEN DIABETES SCREEN [facility] Start: 08-20-2022 Diabetes Screening Diabetes Screenin g [facility] Start: 05-01-2022 End: 07-01-2022 25-hydroxyvitamin D3 [Mass/volume] in Serum or Plasma VITAMIN D 25 HYDROXY Lab Routine Vitamin D deficiency Expected: 05/01/2022, Expires: 07/01/2022 [facility] Work Phone: Comment on above: Expected: 05/01/2022 , Expires: 07/01/2022 Start: 05-01-2022 End: 07-01-2022 CBC W Auto Differential panel - Blood CBC + DIFF Lab Routine Medication monitoring encounter Expected: 05/01/2022, Expires: 07/01/2022 [facility] Work Phone: Comment on above: Expected: 05/01/2022 , Expires: 07/01/2022 Start: 04-17-2022 End: 06-17-2022 Cobalamin (Vitamin B12) [Mass/volume] in Serum or Plasma VITAMIN B12 BLOOD Lab Routine Multiple sclerosis (HCC) Expected: 04/17/2022, Expires: 06/17/2022 [facility] Work Phone: Comment on above: Expected: 04/17/2022 , Expires: 06/17/2022 Start: 04-17-2022 End: 06-17-2022 Comprehensive metabolic 2000 panel - Serum or Plasma COMP METABOLIC PANEL Lab Routine Medication monitoring encounter Expected: 04/17/2022, Expires: 06/17/2022 [facility] Work Phone: Comment on above: Expected: 04/17/2022 , Expires: 06/17/2022 Start: 04-17-2022 End: 06-17-2022 Thyrotropin [Units/volume] in Serum or Plasma TSH BLD Lab Routine Malaise and fatigue Expected: 04/17/2022, Expires: 06/17/2022 [facility] Work Phone: Comment on above: Expected: 04/17/2022 , Expires: 06/17/2022 Start: 02-12-2022 DEPRESSION ASSESSMENT DEPRESSION ASS ESSMENT [facility] Start: 10-13-2021 Influenza vaccination [facility] Start: 09-13-2021 End: 11-13-2021 CBC W Auto Differential panel - Blood CBC + DIFF Lab Routine Encounter for long-term (current) use of medications Expected: 09/13/2021, Expires: 11/13/2021 [facility] Work Phone: Comment on above: Expected: 09/13/2021 , Expires: 11/13/2021 Start: 09-13-2021 End: 11-13-2021 Comprehensive metabolic 2000 panel - Serum or Plasma COMP METABOLIC PANEL Lab Routine Encounter for long-term (current) use of medications Expected: 09/13/2021, Expires: 11/13/2021 [facility] Work Phone: Comment on above: Expected: 09/13/2021 , Expires: 11/13/2021 Start: 02-12-2021 DEPRESSION ASSESSMENT DEPRESSION ASS ESSMENT [facility] Start: 01-28-2021 Adult depression screening assessment DEPRESSION SCREENING [facility] Start: 04-28-2019 SHINGRIX VACCINE (1 of 2) SHINGRIX VACCINE (1 of 2) [facility] Start: 2014 COLOGUARD (FIT-DNA) COLOGUARD (FIT-D NA) [facility] Start: 2014 Colonoscopy COLONOSCOPY [facility] Start: 2014 COLORECTAL CANCER SCREENING COLORECTAL CANCER SCREENING [facility] Start: [address] COLONOGRAPHY [facility] Start: 2014 FECAL OCCULT BLOOD FECAL OCCULT BLOO D [facility] Start: 2014 Lipid 1996 panel - Serum or Plasma Lipid Screening [facility] Start: 2014 LIPID SCREEN LIPID SCREEN [facility] Start: 2014 Screening for malign ant neoplasm of colon [facility] Start: 2014 SIGMOIDOSCOPY SIGMOIDOSCOPY [facility] Start: 2009 Mammography [facility] Start: 2009 Screening for malign ant neoplasm of breast Mammogram Screening [facility] Start: 04-28-1999 HPV TESTING HPV TESTING [facility] Start: 1990 PAP TESTING PAP TESTING [facility] Start: 1990 Screening for malign ant neoplasm of cervix Cervical Cancer Screening [facility] Start: 1988 Hepatitis B Vaccine (1 of 3 - 19+ 3-dose series) Hepatitis B Vaccine (1 of 3 - 19+ 3-dose series) [facility] Start: 1988 Pneumococcal Vaccine : 50+ (1 of 2 - PCV) Pneumococcal Vaccine: 50+ (1 of 2 - PCV) [facility] Start: 1988 Urine microalbumin profile [facility] Start: 04-28-1987 Annual PCP Team [employer] madan Disease Visit Annual PCP Team Chronic Disease Visit [facility] Start: 04-28-1987 Anxiety Screening Anxiety Screening [facility] Start: 04-28-1987 Depression Screening Depression Scre ening [facility] Start: 04-28-1987 Hepatitis B surface antibody level LDL Cholesterol [facility] Start: 04-28-1987 HIV SCREENING HIV SCREENING [facility] Start: 04-28-1987 HIV screening HIV Screening [facility] Start: 04-28-1979 Diabetic foot examination Diabetic Foot Exam [facility] Start: 04-28-1979 Glaucoma screening Dilated Retinal E xam [facility] Start: 04-28-1979 Hepatitis B screening Urine Albumin:Creatinine Ratio [facility] Start: 04-28-1975 PNEUMOCOCCAL (1 - PCV) PNEUMOCOCCAL (1 - PCV) [facility] Start: 04-28-1975 Pneumococcal vaccination [facility] Start: 1974 COVID-19 VACCINE (1) COVID-19 VACCIN E (1) [facility] Start: 1974 Hemoglobin A1c measurement HbA1C [facility] Start: 1969 COVID-19 VACCINE (#1) COVID-19 VACCI NE (#1) [facility] Start: 1969 HEPATITIS B (1 of 3 - 3-dose series) HEPATITIS B (1 of 3 - 3-dose series) [facility] Start: 1969 Hepatitis B Vaccine (1 of 3 - 3-dose series) Hepatitis B Vaccine (1 of 3 - 3-dose series) [facility] End: 05-17-2023 Mri brain brain stem w/o w/contrast material MRI BRAIN WO/W IVCON Radiology Routine Demyelinating disease of central nervous system (HCC) 1 Occurrences starting 04/17/2022 until 05/17/2023 [facility] Work Phone: Comment on above: 1 Occurrences starti ng 04/17/2022 until 05/17/2023 End: 05-17-2023 Mri spinal canal cervical w/o & w/contr matrl MRI CERVICAL SPINE WO/W IVCON Radiology Routine Demyelinating disease of central nervous system (HCC) 1 Occurrences starting 04/17/2022 until 05/17/2023 [facility] Work Phone: Comment on above: 1 Occurrences starti ng 04/17/2022 until 05/17/2023 Patient Education ED Dental Pain ED Dental Cavity ED Cystitis Female Adult [facility] Work Phone: Patient referral [facility] Work Phone: Physical performance test/nestor w/reprt ea 15 min PHYSICAL PERFORMANCE TEST Procedures Routine Multiple sclerosis (HCC) Abnormality of gait Ordered: 08/07/2023 [facility] Work Phone: Comment on above: Ordered: 08/07/2023 [facility] Jose Manuel corbin Payers Date Payer Category Payer Self-pay [id number] 2024 Medicare [id number] 2023 Unknown [id number] 2022 Blue Cross Blue Shield [id number] 2022 Unknown [id number] 2019 Private Health Insurance [facility] CHOICE PLUS [id number] 2019-Present [id number] [place] [id number] O [id number] 2019 Private Health Insurance [facility] PLUS [id number] 2019-Present [id number] [place] [id number] O [id number] 2006 Unknown [id number] 2006 Unknown [facility] [id number] Private Health Insurance [id number] Unknown [id number] Unknown [id number] Unknown [id number] Social History Date Type Detail Facility Start: 08-20-2019 End: 01-31-2023 Tobacco smoking status NHIS Smokes tobacco daily [facility] Start: 08-20-2019 End: 01-31-2023 Tobacco use and exposure Smokeless tobacco non-user [facility] Start: 1970 Sex Assigned At Female [facility] Start: 01-01-2023 Tobacco smoking stat us KSIS Unknown if ever smoked [facility] Start: 10-22-2020 End: 01-31-2023 History of Social function [facility] Start: 10-22-2020 End: 01-31-2023 Tobacco use panel [facility] Adult Depression Screening Assessment 1 [facility] Start: 01-29-2020 Gender identity Identifies as female gender (finding) [facility] Start: 05-05-2020 Sexual orientation Heterosexual (fin anthony) [facility] Clinical Notes 06-01-2021 to 12-23-2024 Telephone Encounter - Meghan Mohan - 09/11/2024 2:48 PM EDTTelephone Encounter - Meghan Mohan - 09/11/2024 2:48 PM [place] [facility] - 04/29/2024 3:39 PM EDTPatient Instructions Note Date & Type Note Facility 12-23-2024 Note HNO ID: [id number] Author: KIMMY ARTEAGA RT(R) Service: ? Author Type: Technologist Type: Progress Notes Filed: 12/23/2024 13:44 Note Text: Radiology Service Progress Note DATE OF SERVICE: December 23, 2024 TIME: 1:43 PM PATIENT IDENTITY VERIFICATION COMPLETED USING TWO (2) STANDARD IDENTIFIERS: Name and Date of confirmed by patient verbally. FALL SCREENING: Has the patient had 2 falls in the last year or 1 fall with injury or currently using an Ambulatory Assistive Device (Walker, Cane, Wheelchair, Crutches, etc.)? No PATIENT GENDER DATA: Assigned female at . status: : No status: NO. PATIENT RELEVANT IMPLANT DATA REVIEWED: Yes PATIENT PRESENTS WITH AN IMPLANTABLE OR ATTACHED OCEANOGRAPHER ASSISTANT: No ALLERGIES: Reviewed and unchanged CONTRAST ALLERGY: NO. EXAM: MRI - CONTRAST TYPE: GROUP II PERIPHERAL IV DATA: Ambulatory: A peripheral IV was started in the Right forearm with a Angio cath: 22 gauge. RADIOLOGY DEPARTMENT: MR; Exam(s) Completed: Head: Multiple Sclerosis Spine: Cervical spine and Thoracic spine. Anesthesia: No. Aromatherapy Administered: No SIGNATURE: RT Caitie(R) PATIENT NAME: José Miguel Cedillo DATE: December 23, 2024 TIME: 1:43 PM [facility] 12-05-2024 Note HNO ID: [id number] Author: LISA JAIMES MD Service: ? Author Type: Physician Type: Progress Notes Filed: 12/05/2024 14:22 Note Text: [facility] NEW PATIENT VISIT REFERRAL SOURCE: SELF DIAGNOSIS: Multiple Sclerosis DISEASE SUMMARY Date of onset: Date of diagnosis: Disease course at onset: Relapsing-Remitting Current disease course: Relapsing-Remitting Previous disease therapies: - IFN (stopped due to injection fatigue) - Tecfidera (09/2019 - 05/2022; stopped due to insurance issues) Current disease therapy: Tecfidera (01/2023 - current) Most recent MRI brain: 08/06/2023 (stable vs. 05/07/2020, 09/05/2019) Most recent MRI cervical spine: 08/06/2023 (stable vs. 06/06/2019: multifocal cord lesions) CSF: None JCV serology result and date: 09/05/2019 (positive, 1.31) An opinion on this 54 year old right handed female was requested by the patient to re-establish care for MS at the [facility]. The patient was not accompanied by anyone. Previous records (physician notes, laboratory reports, and radiology reports) and imaging studies were reviewed and summarized. My recommendations will be communicated back to the patient's physician(s) via electronic medical record. Follow-up is expected to be with me at the [facility]. HISTORY: Patient previously followed by Dr. Rucker and Dr. Zaman at [place] but would like to establish care at [place] due to proximity. She was reportedly diagnosed with optic neuritis and subsequently MS in . She was initially started on subQ IFN in but stopped after one year due to injection fatigue. She had recalled another relapse in 2002 and another in 2006 treated with steroids. Reportedly she had no further symptoms but she established care at [place] in 2019 as she had noted recent new numbness in the RLE and RUE as well as OS light flashes. She was seen by gerentological physiotherapist who diagnosed her with optic neuritis and recommended evaluation at [place]. She underwent updated neuroimaging MRI brain and MRI cervical spine demonstrating new intracranial lesions and new degenerative spine disease vs. 2007. MRI orbit with left optic neuritis. She was subsequently started on Tecfidera as patient preferred oral option. She had a period of treatment lapse in 2022 due to insurance coverage but established care with Dr. Rucker who resumed Tecfidera. MRIs have reassuringly remained stable. She was last seen 08/07/2023. In August 2024 she was admitted to hospital with sepsis suspected to be from sinusitis. She had recently all teeth removed in October due to poor dental health. She has had a stable cyst on her buttocks for 2 years without concerns for infection. She has been referred to general surgery but has not scheduled yet. She denies any major changes in her MS. She continues to take Tecfidera daily without missing doses. She denies any major side effects related to medication. She denies neck pain or radicular arm symptoms. Current MS symptoms: Left drop foot (about 5 years) RUE and RLE numbness Imbalance Urinary retention and hesitation; no frequent incontinence She denies smoking history (quit in October 2024). She denies significant alcohol use. She is currently on disability (previously clerical and administrative workers). Neuro-QoL Functions (higher=better functioning) Flowsheet [facility] Office Visit from 12/05/2024 in Neurology Appointment from 11/06/2024 in [facility] Office Visit from 04/17/2022 in [facility] Upper Extremity Domain T Score 57 50 57 Lower Extremity Domain T Score 38 34 43 Cognitive Function Domain T Score 50 49 58 Positive Affect Well Being T Score -- -- -- Ability To Participate In Social Roles T Score 47 47 42 Satisfaction With Social Roles T Score 43 42 41 Neuro-QoL Symptoms (higher=worse symptoms) Flowsheet [facility] Office Visit from 12/05/2024 in Neurology Appointment from 11/06/2024 in [facility] Office Visit from 04/17/2022 in [facility] Sleep Domain T Score 39 42 40 Fatigue Domain T Score 45 42 43 Anxiety Domain T Score 41 42 41 Depression Domain T Score 51 49 49 Stigma Domain T Score 47 50 43 Emotional Behavior Dyscontrol T Score -- -- -- View Neuro QoL Trends - Higher is Better View Neuro QoL Trends - Lower is Better has a past medical history of Multiple sclerosis, Narcolepsy and cataplexy (HCC), and Psoriasis. She has no past medical history of Anxiety, Atrial fibrillation (HCC), Cancer (HCC), Chronic obstructive pulmonary disease (COPD) (HCC), Chronic renal insufficiency, Congestive heart failure (HCC), Coronary artery disease, Depression, Diabetes (HCC), Epilepsy (HCC), Hyperlipidemia, Hypertension, terminal superintendent (current) use of systemic steroids, Obstructive sleep apnea, Stroke ([facility]), Substance abuse (HCC), or Thyroid disease. has a current medication list which includes the following prescription(s): dimethyl fumarate, ibuprofen, cholecalciferol (vitamin d3), OTC NUTRITION (more content not included)... [facility] 09-11-2024 Telephone encounter Note left vm for patient about scheduling follow up with [place] per rx reponse. called [phone] [facility] 09-11-2024 Miscellaneous Notes left vm for patient about scheduling follow up with [facility] per rx reponse. called [phone] documented in this encounter [facility] 04-29-2024 Note HNO ID: [id number] Author: GEOVANNA JUSTIN HUC Service: ? Author Type: Health Women'S Studies Lecturer Type: Progress Notes Filed: 04/30/2024 12:55 Note Text: Type of form: Disability Form received via fax form is completed, Faxed form to [phone] Form has been completed by Physician Mailbox: Dr. Rucker Via Docu sign FCE was faxed with form AGUSTÍN Beard [facility] 04-29-2024 History of Presen t illness Narrative Type of form: Disability Form received via fax form is completed, Faxed form to [phone] Form has been completed by Physician Mailbox: Dr. Rucker Via Docu sign FCE was faxed with form AGUSTÍN Beard documented in this encounter [facility] 04-25-2024 Telephone encounter Note Attempted to call Jayne no answer left number to call back [facility] 04-25-2024 Miscellaneous Notes Attempted to call Jayne no answer left number to call back Jayne calling again to see if this form is going to be completed since patient had the FCE done. Please let her know today. Moncho Call Name of caller : Jayne Relationship to patient: Giovana Return call phone number : [phone] Reason for call : Call from [facility] following up on a request for the pt's Questionnaire to be completed and the FCE sheet for their disability hearing before 04/23/24 refaxed documented in this encounter [facility] 04-25-2024 Telephone encounter Note Jayne calling again to see if this form is going to be completed since patient had the FCE done. Please let her know today. [facility] Work Phone: 04-21-2024 Telephone encounter Note Moncho Call Name of caller : Jayne Relationship to patient: Giovana Return call phone number : [phone] Reason for call : Call from [employer] following up on a request for the pt's Questionnaire to be completed and the FCE sheet for their disability hearing before 04/23/24 refaxed [facility] 04-15-2024 Telephone encounter Note Pharmacy comment: Conflict with other medication, disease or allergy. Source : electronic from pharmacy requesting refill. Delivery : e-script Requested Prescriptions Pending Prescriptions Disp Refills dimethyl fumarate (TECFIDERA) [address] [Pharmacy Med Name: DIMETHYL FUM 240MG DR CAP] 180 capsule 1 Sig: TAKE 1 CAPSULE BY MOUTH TWICE DAILY DX : Patient last seen 08/07/2023 Next Appointment : AGUSTÍN Beard [facility] 04-15-2024 Miscellaneous Notes Pharmacy comment: Conflict with other medication, disease or allergy. Source : electronic from pharmacy requesting refill. Delivery : e-script Requested Prescriptions Pending Prescriptions Disp Refills dimethyl fumarate (TECFIDERA) [address] [Pharmacy Med Name: DIMETHYL FUM 240MG DR CAP] 180 capsule 1 Sig: TAKE 1 CAPSULE BY MOUTH TWICE DAILY DX : Patient last seen 08/07/2023 Next Appointment : AGUSTÍN Beard documented in this encounter [facility] 04-11-2024 Telephone encounter Note Source : call from patient requesting refill. Delivery : e-script Requested Prescriptions Pending Prescriptions Disp Refills dimethyl fumarate (TECFIDERA) [address] 180 capsule 3 Sig: Take 1 capsule by mouth two times a day. DX : Patient last seen : 08/07/2023 Next Appointment : AGUSTÍN Beard [facility] 04-11-2024 Miscellaneous Notes Source : call from patient requesting refill. Delivery : e-script Requested Prescriptions Pending Prescriptions Disp Refills dimethyl fumarate (TECFIDERA) [address] 180 capsule 3 Sig: Take 1 capsule by mouth two times a day. DX : Patient last seen : 08/07/2023 Next Appointment : AGUSTÍN Beard documented in this encounter [facility] 04-07-2024 Note HNO ID: [id number] Author: GEOVANNA JUSTIN HUC Service: ? Author Type: Health Women'S Studies Lecturer Type: Progress Notes Filed: 04/11/2024 14:49 Note Text: Requested by: usrx fax Medication Requested: Dimethyl fumarate Insurance Name: Us rx Status Approved 04/11/2024 -04/11/2025 [facility] 04-07-2024 History of Presen t illness Narrative Requested by: usrx fax Medication Requested: Dimethyl fumarate Insurance Name: Us rx Status Approved 04/11/2024 -04/11/2025 documented in this encounter [facility] 04-04-2024 Note HNO ID: [id number] Author: CHRISTEL BOYCE OTR/Mary Service: ? Author Type: Occupational Therapist Type: Progress Notes Filed: 04/04/2024 14:48 Note Text: No Data Recorded [facility] PHYSICAL CAPACITY EVALUATION José Miguel Mistry Candidamaria alejandra [phone] 04/04/2024 Cementing Bulk Material Operator: Christel Boyce OT/Mary Referring Physician: Alok Rucker MD DIAGNOSIS: Multiple sclerosis (hcc) PURPOSE OF THIS EVALUATION : This evaluation was designed to Assist physician in making recommendations regarding client's application for disability. The client was instructed in the purpose and contents of the evaluation before testing. The client was informed of her ability and responsibility to modify, limit, or refuse any part of the evaluation. Functional Capacity Evaluation completed today. See scanned document tab for complete detailed report. Summary cover letter included below. A Physical Residual Functional Capacity Assessment was conducted on 04/04/2024 to determine Ms. Cedillo's tolerance to perform work tasks. Consistency of Effort results obtained during testing indicate Ms. Cedillo put forth full effort. Reliability of Pain results obtained during testing indicate pain could have been considered while making functional decisions. Ms. Cedillo demonstrated the ability to perform within the LIGHT Physical Demand Category based on the definitions developed by the [place] Department of Labor and outlined in the Dictionary of Occupational Titles. Ms. Cedillo lifted 25 pounds to below waist height. Ms. Cedillo carried 15 pounds. Pushing abilities were evaluated and Ms. Cedillo pulled 22.5 horizontal force pounds and pushed 22.5 horizontal force pounds respectively. Non-material handling testing indicates Ms. eCdillo demonstrates an occasional tolerance for Bending, Fine Coordination, Firm Grasping, Gross Coordination and Walking. Ms. Cedillo demonstrated the ability to perform Above Shoulder Reach, Forward Reaching, Pinching and Simple Grasping with frequent tolerance. The functional activities Ms. Cedillo should avoid within a competitive work environment include Dynamic Balance, Static Balance, Crawling, Repetitive Kneeling, Squatting and Stair Climbing. Musculoskeletal exam results as outlined in full Functional Capacity Evaluation report. Education: Learning preferences: Explanation Barriers: No barriers Learning/educational needs: Plan of care Education Provided: See Treatment Below Audience: Patient Method of education: Explanation Response: Verbalized understanding Billing: Total Treatment Time Minutes (timed/untimed) 135 Start Time: 12:30; Stop Time: 2:15 Physical Performance Test (and doc) (14083): 1:1 time: 105 minutes (7 units: 98-112 mins) Total time: 135 minutes Christel Boyce OT/Mary [facility] 04-04-2024 History of Presen t illness Narrative No Data Recorded [facility] PHYSICAL CAPACITY EVALUATION José Miguel Cedillo [id number] 04/04/2024 Cementing Bulk Material Operator: Christel Boyce OT/Mary Referring Physician: Alok Rucker MD DIAGNOSIS: Multiple sclerosis ([facility]) PURPOSE OF THIS EVALUATION : This evaluation was designed to Assist physician in making recommendations regarding client's application for disability. The client was instructed in the purpose and contents of the evaluation before testing. The client was informed of her ability and responsibility to modify, limit, or refuse any part of the evaluation. Functional Capacity Evaluation completed today. See scanned document tab for complete detailed report. Summary cover letter included below. A Physical Residual Functional Capacity Assessment was conducted on 04/04/2024 to determine Ms. Cedillo's tolerance to perform work tasks. Consistency of Effort results obtained during testing indicate Ms. Cedillo put forth full effort. Reliability of Pain results obtained during testing indicate pain could have been considered while making functional decisions. Ms. Cedillo demonstrated the ability to perform within the LIGHT Physical Demand Category based on the definitions developed by the [place] [employer] of [employer] and outlined in the Dictionary of Occupational Titles. Ms. Cedillo lifted 25 pounds to below waist height. Ms. Cedillo carried 15 pounds. Pushing abilities were evaluated and Ms. Cedillo pulled 22.5 horizontal force pounds and pushed 22.5 horizontal force pounds respectively. Non-material handling testing indicates Ms. Cedillo demonstrates an occasional tolerance for Bending, Fine Coordination, Firm Grasping, Gross Coordination and Walking. Ms. Cedillo demonstrated the ability to perform Above Shoulder Reach, Forward Reaching, Pinching and Simple Grasping with frequent tolerance. The functional activities Ms. Cedillo should avoid within a competitive work environment include Dynamic Balance, Static Balance, Crawling, Repetitive Kneeling, Squatting and Stair Climbing. Musculoskeletal exam results as outlined in full Functional Capacity Evaluation report. Education: Learning preferences: Explanation Barriers: No barriers Learning/educational needs: Plan of care Education Provided: See Treatment Below Audience: Patient Method of education: Explanation Response: Verbalized understanding Billing: Total Treatment Time Minutes (timed/untimed) 135 Start Time: 12:30; Stop Time: 2:15 Physical Performance Test (and doc) (18256): 1:1 time: 105 minutes (7 units: 98-112 mins) Total time: 135 minutes GHADA Veloz documented in this encounter [facility] 12-06-2023 Telephone encounter Note Call attempt to schedule physical therapy FCHANK Martinez [facility] 12-06-2023 Miscellaneous Notes Call attempt to schedule physical therapy FCTyron jennySTACEYFidelia Moncho Call Name of caller : Sunita Relationship to patient: Return call phone number : [phone] Reason for call : Following up regarding questionnaire sent to Dr. Rucker for completion. See the below abstract 10/03/2023: Type of form: [employer] Social Security Form received via mail When form is completed, Fax form to [phone] Form has been forwarded to Physician Mailbox: AGUSTÍN Duncan documented in this encounter [facility] 11-27-2023 Telephone encounter Note Moncho Call Name of caller : Nate Childers Nickolas Relationship to patient: Return call phone number : [phone] Reason for call : Following up regarding questionnaire sent to Dr. Rucker for completion. See the below abstract 10/03/2023: Type of form: [employer] Social Security Form received via mail When form is completed, Fax form to [phone] Form has been forwarded to Physician Mailbox: AGUSTÍN Duncan [facility] 10-31-2023 Telephone encounter Note Order placed. Georgina Agustin PA-C [facility] Work Phone: 10-31-2023 Miscellaneous Notes Order placed. Georgina Agustin PA-C Normal priority message forwarded to [facility] provider for review. Moncho Call Name of caller : Destiny Relationship to patient: Caregiver Return call phone number : Central scheduling Reason for call : Other : Brief description of concern : The patient requires a new order for the physical performance test and physical therapy order to be scheduled. documented in this encounter [facility] 10-31-2023 Telephone encounter Note Normal priority message forwarded to [facility] provider for review. [facility] 10-31-2023 Telephone encounter Note [place] Call Name of caller : Destiny Relationship to patient: Caregiver Return call phone number : Central scheduling Reason for call : Other : Brief description of concern : The patient requires a new order for the physical performance test and physical therapy order to be scheduled. [facility] Work Phone: 10-03-2023 History of Presen t illness Narrative Type of form: [employer] Social Security Form received via mail form is completed, Faxed form to [phone] With [facility]CE AGUSTÍN Beard documented in this encounter [facility] 08-07-2023 Instructions Alok Rucker MD - 08/07/2023 2:51 PM EDT Schedule a Physical Performance Test. Get repeat blood work. documented in this encounter [facility] 08-07-2023 History of Presen t illness Narrative Images from the original note were not included. [facility] FOLLOWUP/ESTABLISHED PATIENT VISIT PRINCIPAL NEUROLOGIC DIAGNOSIS: Multiple Sclerosis DISEASE SUMMARY Date of onset: mid Date of diagnosis of MS: mid Disease course at onset: Relapsing-Remitting Current disease course: Relapsing-Remitting Previous disease therapies: - IFN-beta in (stopped due to injection fatigue) Current disease therapy: - Tecfidera (since 09/2019, off 05/2022-01/2023 due to insurance issues) Most recent MRI brain: 08/06/2023 (stable) Most recent MRI cervical spine: 08/06/2023 (stable) CSF: NA JCV serology (09/05/2019): Positive, Index 1.31 CHIEF COMPLAINT: Review diagnostic testing results and discuss implications INTERVAL HISTORY: Since her last visit, José Miguel Mistry Cristina established with orthopaedic surgery. They prescribed a knee brace and a trial of meloxicam, which has helped somewhat. She had recent worsening in her neurologic symptoms in the setting of dental caries approximately 1 month ago. She is now close to her baseline. Her 08/06/2023 MRI Brain and C-spine were stable compared to 05/07/2020 and 09/05/2019, respectively. She stopped working in November 2019 due to issues with difficulty walking and falls related to MS and narcolepsy with episodes of falling asleep at work. SSDI was recently denied. Refer to patient-entered data. Usual treating team: Chaim/Pema The patient is accompanied by her . The patient was last seen 01/31/2023, currently taking Tecfidera. Since the patient's last visit the patient reports overall feeling stable. Issues with current therapy: Tolerating medication without side effects. Neuro-QoL Functions (higher=better functioning) Flowsheet Row Office Visit from 04/17/2022 in [facility] Office Visit from 05/07/2020 in [facility] Office Visit from 01/30/2020 in [facility] Upper Extremity Domain T Score 57 56.6 57 Lower Extremity Domain T Score 43 54.8 46 Cognitive Function Domain T Score 58 52.05 52 Positive Affect Well Being T Score -- -- -- Ability To Participate In Social Roles T Score 42 50.36 56 Satisfaction With Social Roles T Score 41 48.45 55 Neuro-QoL Symptoms (higher=worse symptoms) Flowsheet Row Office Visit from 04/17/2022 in [facility] Office Visit from 05/07/2020 in [facility] Office Visit from 01/30/2020 in [facility] Sleep Domain T Score 40 39.59 40 Fatigue Domain T Score 43 28.63 38 Anxiety Domain T Score 41 32.12 39 Depression Domain T Score 49 41.37 44 Stigma Domain T Score 43 36.56 37 Emotional Behavior Dyscontrol T Score -- -- -- has a past medical history of Multiple sclerosis ([facility]), Narcolepsy and cataplexy, and Psoriasis. She has no past medical history of Anxiety, Atrial fibrillation ([facility]), Cancer ([facility]), Chronic obstructive pulmonary disease (COPD) ([facility]), Chronic renal insufficiency, Congestive heart failure ([facility]), Coronary artery disease, Depression, Diabetes ([facility]), Epilepsy ([facility]), Hyperlipidemia, Hypertension, intermediate (current) use of systemic steroids, Obstructive sleep apnea, Stroke ([facility]), Substance abuse ([facility]), or Thyroid disease. has a current medication list which includes the following prescription(s): ibuprofen, dimethyl fumarate, cholecalciferol (vitamin d3), OTC NUTRITIONAL SUPPLEMENT, rosuvastatin, metformin er, and bupropion xl. EXAM: BP 161/92 (BP Site: Right Arm, BP Position: Sitting, BP Cuff Size: Regular Adult) Pulse 62 Ht 167.6 cm (5' 6) Wt 104.3 kg (230 lb) BMI 37.12 kg/m MSPT Results Flowsheet [facility] Office Visit from 05/07/2020 in [facility] Office Visit from 01/30/2020 in [facility] Office Visit from 08/20/2019 in [facility] Processing Speed Total Number Correct 30 31 -- Processing Speed Z score -1.62 -1.53 -- Dominant hand -- -- Right hand MDT Left Hand Time 33.33 39.36 -- MDT Right Hand Time 29 32.48 -- Walking Speed Test (25 feet) 8.55 7.07 -- T25FW: 9.14 sec (trial 1), 7.56 sec (trial 2) General Appearance: well appearing, in no acute distress Mental status evaluation during the interview and examination showed normal level of consciousness, orientation, language, memory, praxis, and higher intellectual function Affect: Normal RESULTS: CBC + Diff Component Value Date WBC 6.81 01/17/2023 HB 13.8 01/17/2023 HCT 42.5 01/17/2023 PLT 274 01/17/2023 ABSLYMPH 1.58 01/17/2023 CMP Component Value Date AST 17 01/17/2023 GLUC 346 (H) 01/17/2023 BUN 11 01/17/2023 CREAT 0.64 01/17/2023 NA 136 01/17/2023 K 4.5 01/17/2023 CHLOR 99 01/17/2023 ALT 21 01/17/2023 MRI Results: Discrete MRI Results Component Value Date Brain New T2 Lesions None 08/06/2023 Brain New T2 Lesions None 08/06/2023 Brain Enhancing Lesions None 08/06/2023 Brain Enhancing Lesions None 08/06/2023 Cervical Spine New T2 Lesions None 08/06/2023 Cervical Spine New T2 Lesions None 08/06/2023 Cervical spine enhancing lesions None 08/06/2023 Cervical spine enhancing lesions None 08/06/2023 ASSESSMENT/PLAN: José Miguel Cedillo is a 52-year-old woman followed for relapsing Multiple Sclerosis. She is radiologically stable on Tecfidera, started in September 2019. It is unclear if her increased difficulty walking is due to joint issues or clinical worsening from multiple sclerosis. We will continue to monitor clinically on Tecfidera. If there is evidence of disease progression, we could consider switching to a B-cell depleting therapy in the future. PLAN: Continue Tecfidera. Monitoring labs in clinic today. Physical Performance Test. We can help with the appeal for her SSDI denial once her Physical Performance Test is complete, but I also recommended that she get supporting letters from Sleep Medicine. Office Visit on 08/07/23 PHYSICAL PERFORMANCE TEST The chart was reviewed for possible participation in the following studies: NA Follow-up: In 6 months at [place] with [facility] APC I spent a total of 30 minutes on the date of the service which included preparing to see the patient, [id number] patient care, completing clinical documentation, obtaining and/or reviewing separately obtained history, counseling and educating the patient/family/caregiver, and ordering medications, tests, or procedures. Alok Rucker MD [facility] Multiple Sclerosis documented in this encounter [facility] 08-06-2023 History of Presen t illness Narrative Radiology Service Progress Note DATE OF SERVICE: August 06, 2023 TIME: 12:09 PM PATIENT IDENTITY VERIFICATION COMPLETED USING TWO (2) STANDARD IDENTIFIERS: Name and Date of confirmed by patient verbally. FALL SCREENING: Has the patient had 2 falls in the last year or 1 fall with injury or currently using an Ambulatory Assistive Device (Walker, Cane, Wheelchair, Crutches, etc.)? No PATIENT GENDER DATA: Female. status: : No status: NO. PATIENT RELEVANT IMPLANT DATA REVIEWED: Yes PATIENT PRESENTS WITH AN IMPLANTABLE OR ATTACHED OCEANOGRAPHER ASSISTANT: No ALLERGIES: Reviewed and unchanged CONTRAST ALLERGY: NO. EXAM: MRI - CONTRAST TYPE: GROUP II PERIPHERAL IV DATA: Ambulatory: A peripheral IV was started in the Right forearm with a Angio cath: 22 gauge. RADIOLOGY DEPARTMENT: MR; Exam(s) Completed: Head: Multiple Sclerosis Spine: Cervical spine SIGNATURE: RT Caitie(R) PATIENT NAME: José Miguel Cedillo DATE: August 06, 2023 TIME: 12:09 PM documented in this encounter [facility] 01-17-2023 Miscellaneous Notes Summary: APPOINTMENT LVM INFORMING PATIENT THAT WE NEED TO CANCEL HER APPOINTMENT WITH DARA LEOS SEEING SHE NEEDS TO BE SEEN BY A PHYSICIAN FIRST SO I LEFT NUMBER TO CALL SO WE CAN GET HER SCHEDULED documented in this encounter [facility] 01-17-2023 Miscellaneous Notes Summary: Appointment Called to inform pt that appt for 01/18 has been canceled and rescheduled to 01/19 because she needs to establish care with a physician. LVM with appt details and sent mychart msg documented in this encounter [facility] 04-17-2022 Miscellaneous Notes Left patient mychart reminder to schedule SW consult with irene Mcfarland documented in this encounter [facility] 04-17-2022 Instructions Dara Leos APRN.PUBLICATION DESIGNER - 04/17/2022 1:56 PM EST -Continue Tecfidera -Labs this week. You can have this done at [place] -MRI brain and cervical spine -Consult sleep medicine for follow up with narcolepsy management/treatment -Follow up with PCP for diabetes management -Let me know if you are interested in consult to [facility] for weight loss -Consider consult to smoking cessation program -For any disability claim will need a FCE (functional capacity evaluation), this is done with an occupational therapist -Social work consult placed for insight on disability claim -Need to establish with physician next visit. Could coordinate this with MRI and in-person follow up, or with future FCE. [place] is a possible location for follow up. -You can call [phone] to arrange your appointments. I will also have someone reach out to you -Follow up in 3 months documented in this encounter [facility] 04-17-2022 History of Presen t illness Narrative Images from the original note were not included. [facility] FOLLOWUP/ESTABLISHED PATIENT VISIT PRINCIPAL NEUROLOGIC DIAGNOSIS: Multiple Sclerosis DISEASE SUMMARY Date of onset: mid (optic neuritis- thinks left eye, but not sure) Date of diagnosis of MS: mid Disease course at onset: Relapsing-Remitting Current disease course: Relapsing-Remitting- (L ON 08/2019) Previous disease therapies: IFN-b in (stopped after one year because she didn't like injections and IFNs made her uncomfortable) Current disease therapy: Tecfidera since 09/2019 Most recent MRI brain:05/07/20- stable Most recent MRI cervical spine:09/05/2019. Notable for multiple scattered lesions, no definite new from prior. Also with severe cervical spinal stenosis noted. CSF: none JCV serology result and date: 09/05/19, JCV positive, index 1.31 CHIEF COMPLAINT: Follow-up on MS disease modifying therapy INTERVAL HISTORY: Usual treating team: Earle----> The patient is unaccompanied. The patient was last seen 10/22/2020, currently taking Tecfidera. Since the patient's last visit the patient reports overall feeling stable. Issues with current therapy: Tolerating medication without side effects. Quit her job since last visit due to reoccurring falls. Also is now the primary caregiver for her mother. Sensation loss in the right hand remains. Fine motor skills are not impacted. LLE foot drop. Denies any recent falls. Does not use any assistive device. Discussed AFO in the past, but does not feel like she needs this quite yet. Is stable when slowing down and thinking about what she is doing. Sleep schedule is abnormal. Diagnosed with narcolepsy with cataplexy from past neurologist. Was not able to get outside records to to confirm diagnosis. Was taking adderall in the past, but this was later transitioned to Provigil. No longer taking anything for narcolepsy. Taking bupropion for cataplexy. Experiences severe heat sensitivity. Has gained back some weight. Interested in weight loss. Was prescribed metformin for T2DM, but is not taking this. Working on smoking cessation. Smoking about 10 cigarettes a day. Notices how smoking impacts walking. Denies any recent illness or infection. Continues to supplement with Vitamin D3 5,000iu daily. Mood: Stable Spasticity: Denies Bladder: Urinary urgency, able to manage this with bathroom planning Bowel: Chronic constipation, daily BM Pain related to today's visit: Bilateral knee pain related to weight gain Fatigue: Moderate Sleep: Abnormal schedule, wakes Memory/Concentration: Forgetful at times, overall stable Neuro-QoL Functions (higher=better functioning) Flowsheet [facility] Office Visit from 04/17/2022 in [facility] Office Visit from 05/07/2020 in [facility] Office Visit from 01/30/2020 in [facility] Upper Extremity Domain T Score 57 56.6 57 Lower Extremity Domain T Score 43 54.8 46 Cognitive Function Domain T Score 58 52.05 52 Positive Affect Well Being T Score -- -- -- Ability To Participate In Social Roles T Score 42 50.36 56 Satisfaction With Social Roles T Score 41 48.45 55 Neuro-QoL Symptoms (higher=worse symptoms) Flowsheet [facility] Office Visit from 04/17/2022 in [facility] Office Visit from 05/07/2020 in [facility] Office Visit from 01/30/2020 in [facility] Sleep Domain T Score 40 39.59 40 Fatigue Domain T Score 43 28.63 38 Anxiety Domain T Score 41 32.12 39 Depression Domain T Score 49 41.37 44 Stigma Domain T Score 43 36.56 37 Emotional Behavior Dyscontrol T Score -- -- -- has a past medical history of Multiple sclerosis ([facility]), Narcolepsy and cataplexy, and Psoriasis. She has no past medical history of Anxiety, Atrial fibrillation ([facility]), Cancer ([facility]), Chronic obstructive pulmonary disease (COPD) ([facility]), Chronic renal insufficiency, Congestive heart failure ([facility]), Coronary artery disease, Depression, Diabetes ([facility]), Epilepsy ([facility]), Hyperlipidemia, Hypertension, terminal superintendent (current) use of systemic steroids, Obstructive sleep apnea, Stroke ([facility]), Substance abuse ([facility]), or Thyroid disease. has a current medication list which includes the following prescription(s): dimethyl fumarate, iv contrast, iv contrast, cholecalciferol (vitamin d3), OTC NUTRITIONAL SUPPLEMENT, tecfidera, rosuvastatin, modafinil, metformin er, and bupropion xl. EXAM: There were no vitals taken for this visit. Multiple Sclerosis Performance Test Flowsheet [facility] Office Visit from 05/07/2020 in [facility] Office Visit from 01/30/2020 in [facility] Processing Speed Total Number Correct 30 31 Low-contrast letter acuity test-2.5 percent opacity -- -- Low-contrast letter acuity test-100 percent opacity -- -- Dominant hand -- -- MDT Left Hand Time 33.33 39.36 MDT Right Hand Time 29 32.48 Walking Speed Test (25 feet) 8.55 7.07 General Appearance: well appearing, in no acute distress Mental status evaluation during the interview and examination showed normal level of consciousness, orientation, language, memory, praxis, and higher intellectual function Affect: Normal Visual acuity: OD 20/937 OS 20/374 Correction: With glasses Extraocular movements: full, without PEGGY Speech: normal Muscle strength (#/5): Right Left Upper Extremity: Deltoids 5 5 Biceps 5 5 Triceps 5- 5 Signal Mechanic 5 5 Lower extremity: Iliopsoas 5 5 Quadriceps 5 5 Hamstrings 5 5 Tibialis anterior 5 5 Gastrocnemius 5 5 Coordination: Upper extremity dexterity and rapid movements: Impaired bilaterally Finger-nose: mild dysmetria or incoordination are evident Standing balance: Normal Standard gait: wide-based. Assistive device: independent RESULTS: No results found for: WBC, HB, HCT, PLT, ABSLYMPH No results found for: VITD25 No results found for: AST, GLUC, BUN, CREAT, NA, K, CHLOR, ALT No results found for: JCVIND, JCVAB MRI Results: Discrete MRI Results Component Value Date Brain New T2 Lesions None Site 05/07/2020 Brain Enhancing Lesions None 05/07/2020 Cervical Spine New T2 Lesions 09/05/2019 None however, interrogation of the cord is limited by considerable compression from the degenerative changes. Cervical Spine New T2 Lesions 09/05/2019 None however, interrogation of the cord is limited by considerable compression from the degenerative changes. Cervical spine enhancing lesions None 09/05/2019 Cervical spine enhancing lesions None 09/05/2019 ASSESSMENT/PLAN: José Miguel Cedillo is a 51 year old female with Multiple Sclerosis. Currently being treated with Tecfidera. She presents today for routine follow up. Last visit was in 10/2020. She continues to report compliance with Tecfidera. Updated medication monitoring labs needed at this time. Will refill medication for 2 months and will need updated lab work for further refills. MRI brain and cervical spine indicated. MRI of the brain and/or spinal cord is being ordered to evaluate for efficacy of multiple sclerosis (MS) disease modifying therapy. Disease activity in MS is often not immediately detectable on history or examination, but is sensitively identified on MRI. If identified, new or active MS lesions on MRI may represent suboptimal response to MS therapy, and would change medical management. She reports daily fatigue, which is also impacted by outside diagnosis of narcolepsy with cataplexy. She was previously on modafinil,but is no longer taking this. Will refer to sleep medicine to establish care and address treatment. She also endorses RUE sensation loss, LLE foot drop, imbalance, falls, urinary urgency, and heat intolerance. Patient is not interested in AFO or assistive device. She endorses weight gain and unmanaged T2DM. Advised she follow up with PCP for diabetes management. Can consider consult to [facility] in the future for input on weight loss. Discussed importance of health maintenance and wellness, particularly smoking cessation. Offered smoking cessation course, but she defers for now and will continue to reduce use independently. She is no longer working since last visit secondary to imbalance and repeat falls. She was denied disability. Consult to [place] social sciences department chair placed to discuss disability process. FCE order placed. Discussed importance of comprehensive care team and annual follow up. Should our team be supporting disability she will need to establish with [place] physician. Offered follow up with [place] and she will consider this. She would like to find a provider locally and will ask PCP for assistance. Would recommend she follow up in 3 months with updated imaging and in-person visit to establish care or connect with local provider. Exam is:Stable, continue with current IMDT. The prescribed disease modifying therapy for MS is having the expected benefit in this patient based on imaging and clinical criteria, and will be continued or refilled, with planned follow-up at approximately 6-month intervals to continue to assess response on an ongoing basis. PLAN: -Continue Tecfidera -Labs this week. You can have this done at [place] -MRI brain and cervical spine -Consult sleep medicine for follow up with narcolepsy management/treatment -Follow up with PCP for diabetes management -Let me know if you are interested in consult to [facility] for weight loss -Consider consult to smoking cessation program -For any disability claim will need a FCE (functional capacity evaluation), this is done with an occupational therapist -Social work consult placed for insight on disability process -Need to establish with physician next visit. Could coordinate this with MRI and in-person follow up, or with future FCE. -You can call [phone] to arrange your appointments. I will also have someone reach out to you -Follow up in 3 months Office Visit on 04/17/22 MRI BRAIN WO/W IVCON MRI CERVICAL SPINE WO/W IVCON CBC + DIFF COMP METABOLIC PANEL VITAMIN D 25 HYDROXY VITAMIN B12 BLOOD TSH BLD CONSULT TO SLEEP MEDICINE - ADULT CONSULT TO HOME CARE ASSISTANT MS SOCIAL WORK CONSULT Patient Health Education Discussed at Visit: Aerobic exercise, Emotional Health/Wellness, Healthy Weight, Need for PCP, Risks and Common side effects of MS medications, Smoking Cessation, Vitamin D supplementation, and Weight loss Follow-up: In 3 months at [place] with [facility] I spent a total of 40 minutes on the date of the service which included preparing to see the patient, [id number] patient care, completing clinical documentation, obtaining and/or reviewing separately obtained history, performing a medically appropriate examination, counseling and educating the patient/family/caregiver, ordering medications, tests, or procedures, and communicating with other HCPs (not separately reported). Dara Leos APRN.CNP [facility] Multiple Sclerosis documented in this encounter [facility] 04-17-2022 Nurse Note Patient was called three times prior to check in , no answer within those times. MSPT was not completed . Jet Arias documented in this encounter [facility] 03-06-2022 Miscellaneous Notes Called patient twice to schedule follow up visit with Dara Leos to continue med. refills. Proactively scheduled patient on 03/14. Left a VM for patient to confirm/lai. documented in this encounter [facility] 03-06-2022 Miscellaneous Notes The following approved medication requests have been transmitted electronically. Requested Prescriptions Refused Prescriptions Disp Refills dimethyl fumarate (TECFIDERA) 240 mg capsule [Pharmacy Med Name: DIMETHYL FUMARATE 240MG CAP DELAYED RELEASE] 60 capsule 0 Sig: TAKE 1 CAPSULE (240MG) BY MOUTH TWICE DAILY Refused By: DARA LEOS Reason for Refusal: Patient needs appointment Dara Leos APRN.CNP Patient needs appointment and labs for refills. Source : electronic from pharmacy requesting refill. Delivery : e-script Requested Prescriptions Pending Prescriptions Disp Refills dimethyl fumarate (TECFIDERA) 240 mg capsule [Pharmacy Med Name: DIMETHYL FUMARATE 240MG CAP DELAYED RELEASE] 60 capsule 0 Sig: TAKE 1 CAPSULE (240MG) BY MOUTH TWICE DAILY DX : Patient last seen :10/22/2022 Next Appointment : none Sebastian Mckay documented in this encounter [facility] 01-27-2022 Miscellaneous Notes LVM to schedule MRI and Follow Up Per Staff Message documented in this encounter [facility] 09-13-2021 Miscellaneous Notes Sent [facility] message with recommendations If patient calls, please relay message: Patient needs labs, appt with me or Dr. Cartagena, and MRI. Please let her know then route to appts Jania CRAMER APRN.CNP Images from the original note were not included. NISREEN Cooper Incoming Patient Calls 11 minutes ago (4:11 PM) Patient needs labs, appt with or Dr. Cartagena, and MRI. Please let her know then route to appts Jania CRAMER APRN.CNP Routing comment Reviewed medication monitoring labs. ALT Date Value Ref Range Status 01/23/2020 29 7 - 38 U/L Final AST Date Value Ref Range Status 01/23/2020 18 13 - 35 U/L Final WBC Date Value Ref Range Status 01/23/2020 9.43 3.70 - 11.00 k/uL Final Abs Lymph Date Value Ref Range Status 01/23/2020 2.18 1.00 - 4.00 k/uL Final Needs appt, labs and office visit. Jania CRAMER APRN.CNP Source : fax from pharmacy requesting refill. Delivery : e-script Pending Prescriptions Disp Refills DIMETHYL FUMARATE 240 MG CAPSULE,DELAYED RELEASE 180 capsule 1 Sig: Take 1 capsule (240 mg) by mouth twice daily. DEVONTE: No DX : Patient last seen 10/22/2020 Next Appointment : None Ashly Posada documented in this encounter [facility] 06-01-2021 Miscellaneous Notes Source : fax from pharmacy requesting refill. Delivery : e-script Pending Prescriptions Disp Refills CHOLECALCIFEROL (VITAMIN D3) 25 MCG (1,000 UNIT) CAPSULE 150 capsule 5 Sig: Take 5 capsules by mouth once daily. DEVONTE: No DX : Patient last seen 10/22/2020 Next Appointment : None Ashly Posada documented in this encounter [facility] Evaluation note Diagnosis Hypovitaminosis D Unspecified vitamin D deficiency [facility] Diagnosis Encounter for long-term (current) use of medications- Primary Encounter for long-term (current) use of other medications [facility] Diagnosis Narcolepsy and cataplexy- Primary Narcolepsy with cataplexy Demyelinating disease of central nervous system (HCC) Demyelinating disease of central nervous system, unspecified Medication monitoring encounter Encounter for therapeutic drug monitoring Multiple sclerosis (HCC) Multiple sclerosis Vitamin D deficiency Unspecified vitamin D deficiency Malaise and fatigue Other malaise and fatigue [facility] noteNo assessment information availableWSelect [facility] Work Phone: Evaluation note* Diagnosis Multiple sclerosis (HCC) Multiple sclerosis Demyelinating disease of central nervous system (HCC) Demyelinating disease of central nervous system, unspecified [facility]* Diagnosis Multiple sclerosis (HCC)- Primary Multiple sclerosis Abnormality of gait Encounter for long-term (current) use of medications Encounter for long-term (current) use of other medications [facility]* Diagnosis Multiple sclerosis (HCC)- Primary Multiple sclerosis [facility] Diagnosis Multiple sclerosis (HCC)- Primary Multiple sclerosis Abnormality of gait [facility] Diagnosis Multiple sclerosis (HCC) Multiple sclerosis [facility]* Diagnosis Multiple sclerosis (HCC) Multiple sclerosis [facility]* Diagnosis Multiple sclerosis (HCC) Multiple sclerosis [facility]* Diagnosis Multiple sclerosis (HCC) Multiple sclerosis documented in this encounter [facility] Reason for Referral Specialty Diagnoses / Procedures Referred By Contac t Referred To Contact [facility] Diagnoses Multiple sclerosis (HCC) Procedures CONSULT TO HOME CARE ASSISTANT OCCUPATIONAL THERAPY EVAL HIGH COMPLEX 60 MINS Dara Leos, EDENILSON.PUBLICATION DESIGNER [address] [place] [address] [facility] [place] [address] [place] [address] Referral ID Status Reason Start Date Expiration Date Visits Requested Visits Authorized [id number] Pending Review Auto-Generat ed Referral 04/17/2022 04/17/2023 1 1 Specialty Diagnoses / Procedures Referred By Contac t Referred To Contact MR IMAGING Diagnoses Demyelinating disease of central nervous system (HCC) Procedures MRI CERVICAL SPINE WO/W IVCON MRI SPINAL CANAL CERVICAL W/O & W/CONTR MATRL Dara Leos, EDENILSON.PUBLICATION DESIGNER [address] [place] [address] Mr Imaging Referral ID Status Reason Start Date Expiration Date Visits Requested Visits Authorized [id number] Pending Review Auto-Generat ed Referral 04/17/2022 05/17/2023 1 1 Specialty Diagnoses / Procedures Referred By Contac t Referred To Contact MR IMAGING Diagnoses Demyelinating disease of central nervous system (HCC) Procedures MRI BRAIN WO/W IVCON MRI BRAIN BRAIN STEM W/O W/CONTRAST MATERIAL Dara Leos APRN.PUBLICATION DESIGNER [address] [place] [address] Mr Imaging Referral ID Status Reason Start Date Expiration Date Visits Requested Visits Authorized [id number] Pending Review Auto-Generat ed Referral 04/17/2022 05/17/2023 1 1 Specialty Diagnoses / Procedures Referred By Contac t Referred To Contact Diagnoses Narcolepsy and cataplexy Procedures CONSULT TO SLEEP MEDICINE - ADULT OFFICE/OUTPATIENT [facility] MDM 60-74 MINUTES Dara Leos APRN.PUBLICATION DESIGNER [address] [place] [phone] Referral ID Status Reason Start Date Expiration Date Visits Requested Visits Authorized [id number] Pending Review PCP Requested Referral 04/17/2022 04/17/2023 1 1 Specialty Diagnoses / Procedures Referred By Contac t Referred To Contact MR IMAGING Diagnoses Demyelinating disease of central nervous system (HCC) Procedures MRI CERVICAL SPINE WO/W IVCON MRI SPINAL CANAL CERVICAL W/O & W/CONTR MATRL Alok Rucker MD [address] [place] [phone] Mr Imaging [place] [id number] Referral ID Status Reason Start Date Expiration Date V isits Requested Visits Authorized [id number] Closed Auto-Generate d Referral 07/27/2023 08/25/2023 1 1 Specialty Diagnoses / Procedures Referred By Contac t Referred To Contact MR IMAGING Diagnoses Multiple sclerosis (HCC) Procedures MRI BRAIN WO/W IVCON MRI BRAIN BRAIN STEM W/O W/CONTRAST MATERIAL Alok Rucker MD [address] [place] [phone] Mr Imaging [facility] Referral ID Status Reason Start Date Expiration Date V isits Requested Visits Authorized [id number] Closed Auto-Generate d Referral 07/27/2023 08/25/2023 1 1 Specialty Diagnoses / Procedures Referred By Contac t Referred To Contact [facility] Diagnoses Multiple sclerosis (HCC) Procedures CONSULT TO PHYSICAL THERAPY PHYSICAL THERAPY EVALUATION HIGH COMPLEX 45 MINS Rebecca Young APRN.PUBLICATION DESIGNER [address] [address] [facility] [place] [id number] Referral ID Status Reason Start Date Expiration Date Visits Requested Visits Authorized [id number] Pending Review Auto-Generat ed Referral 08/24/2023 08/23/2024 1 1 Specialty Diagnoses / Procedures Referred By Ortega duval Referred To Contact [facility] Diagnoses Multiple sclerosis (HCC) Abnormality of gait Procedures CONSULT TO PHYSICAL THERAPY PHYSICAL THERAPY EVALUATION HIGH COMPLEX 45 MINS Georgina Agustin PA-C [address] [place] [address] [facility] [place] [address] [place] [address] Referral ID Status Reason Start Date Expiration Date Visits Requested Visits Authorized [id number] Pending Review Auto-Generat ed Referral 10/31/2023 10/30/2024 1 1 Chief Complaint and Reason for Visit Chief Complaint TEETH Advance Directives No Advanced Directives Records Found Advance Directive Response Recorded Date/ Time Living Will No January 01 8:40pm Power of Medical Transcriptionist No January 01, 2023 8:40pm Summary Purpose Family History No Family History Records FoundNo Family History Records FoundNo Family History Records Found Additional Source Comments Source Comments (unrecognize d section and content) In the event this informatio n is protected by the Federal Confidentiality of Alcohol and Drug Abuse Patient Records regulations: The Federal rules restrict any use of the information to criminally investigate or prosecute any alcohol or drug abuse patient.[facility] the event this information is protected by the Federal Confidentiality of Alcohol and Drug Abuse Patient Records regulations: The Federal rules restrict any use of the information to criminally investigate or prosecute any alcohol or drug abuse patient.[facility] Center[facility] the event this information is protected by the Federal Confidentiality of Alcohol and Drug Abuse Patient Records regulations: The Federal rules restrict any use of the information to criminally investigate or prosecute any alcohol or drug abuse patient.[facility] CenterIn the event this information is protected by the Federal Confidentiality of Alcohol and Drug Abuse Patient Records regulations: The Federal rules restrict any use of the information to criminally investigate or prosecute any alcohol or drug abuse patient.[facility] CenterIn the event this information is protected by the Federal Confidentiality of Alcohol and Drug Abuse Patient Records regulations: The Federal rules restrict any use of the information to criminally investigate or prosecute any alcohol or drug abuse patient.[facility] CenterIn the event this information is protected by the Federal Confidentiality of Alcohol and Drug Abuse Patient Records regulations: The Federal rules restrict any use of the information to criminally investigate or prosecute any alcohol or drug abuse patient.[facility] CenterIn the event this information is protected by the Federal Confidentiality of Alcohol and Drug Abuse Patient Records regulations: The Federal rules restrict any use of the information to criminally investigate or prosecute any alcohol or drug abuse patient.[facility] CenterIn the event this information is protected by the Federal Confidentiality of Alcohol and Drug Abuse Patient Records regulations: The Federal rules restrict any use of the information to criminally investigate or prosecute any alcohol or drug abuse patient.[facility] CenterIn the event this information is protected by the Federal Confidentiality of Alcohol and Drug Abuse Patient Records regulations: The Federal rules restrict any use of the information to criminally investigate or prosecute any alcohol or drug abuse patient.[facility] CenterIn the event this information is protected by the Federal Confidentiality of Alcohol and Drug Abuse Patient Records regulations: The Federal rules restrict any use of the information to criminally investigate or prosecute any alcohol or drug abuse patient.[facility] CenterIn the event this information is protected by the Federal Confidentiality of Alcohol and Drug Abuse Patient Records regulations: The Federal rules restrict any use of the information to criminally investigate or prosecute any alcohol or drug abuse patient.[facility] CenterIn the event this information is protected by the Federal Confidentiality of Alcohol and Drug Abuse Patient Records regulations: The Federal rules restrict any use of the information to criminally investigate or prosecute any alcohol or drug abuse patient.[facility] CenterIn the event this information is protected by the Federal Confidentiality of Alcohol and Drug Abuse Patient Records regulations: The Federal rules restrict any use of the information to criminally investigate or prosecute any alcohol or drug abuse patient.[facility] CenterIn the event this information is protected by the Federal Confidentiality of Alcohol and Drug Abuse Patient Records regulations: The Federal rules restrict any use of the information to criminally investigate or prosecute any alcohol or drug abuse patient.[facility] CenterIn the event this information is protected by the Federal Confidentiality of Alcohol and Drug Abuse Patient Records regulations: The Federal rules restrict any use of the information to criminally investigate or prosecute any alcohol or drug abuse patient.[facility] CenterIn the event this information is protected by the Federal Confidentiality of Alcohol and Drug Abuse Patient Records regulations: The Federal rules restrict any use of the information to criminally investigate or prosecute any alcohol or drug abuse patient.[facility] CenterIn the event this information is protected by the Federal Confidentiality of Alcohol and Drug Abuse Patient Records regulations: The Federal rules restrict any use of the information to criminally investigate or prosecute any alcohol or drug abuse patient.[facility] CenterIn the event this information is protected by the Federal Confidentiality of Alcohol and Drug Abuse Patient Records regulations: The Federal rules restrict any use of the information to criminally investigate or prosecute any alcohol or drug abuse patient.[facility] CenterIn the event this information is protected by the Federal Confidentiality of Alcohol and Drug Abuse Patient Records regulations: The Federal rules restrict any use of the information to criminally investigate or prosecute any alcohol or drug abuse patient.[facility] CenterIn the event this information is protected by the Federal Confidentiality of Alcohol and Drug Abuse Patient Records regulations: The Federal rules restrict any use of the information to criminally investigate or prosecute any alcohol or drug abuse patient.[facility] CenterIn the event this information is protected by the Federal Confidentiality of Alcohol and Drug Abuse Patient Records regulations: The Federal rules restrict any use of the information to criminally investigate or prosecute any alcohol or drug abuse patient.[facility] CenterIn the event this information is protected by the Federal Confidentiality of Alcohol and Drug Abuse Patient Records regulations: The Federal rules restrict any use of the information to criminally investigate or prosecute any alcohol or drug abuse patient.[facility] CenterIn the event this information is protected by the Federal Confidentiality of Alcohol and Drug Abuse Patient Records regulations: The Federal rules restrict any use of the information to criminally investigate or prosecute any alcohol or drug abuse patient.[facility] CenterIn the event this information is protected by the Federal Confidentiality of Alcohol and Drug Abuse Patient Records regulations: The Federal rules restrict any use of the information to criminally investigate or prosecute any alcohol or drug abuse patient.[facility] CenterIn the event this information is protected by the Federal Confidentiality of Alcohol and Drug Abuse Patient Records regulations: The Federal rules restrict any use of the information to criminally investigate or prosecute any alcohol or drug abuse patient.[facility] Reason for Visit (unrecogniz ed section and content) Reason Onset Date Comments Refill Request 06/01/2021 Reason Onset Date Comments Refill Request 09/13/2021 Reason Comments Appointment LVM to schedule MRI and Follow Up Per Staff Message Reason Comments Refill Request Reason Comments Appointment Called patient twice to schedule follow up visit with Dara Leos to continue med. refills. Proactively scheduled patient on 03/14. Left a VM for patient to confirm/lai. Reason Comments Appointment Left patient mychart reminder to schedule SW consult with irene Mcfarland Reason Comments Appointment Called to inform pt that appt for 01/18 has been canceled and rescheduled to 01/19 because she needs to establish care with a physician. LVM with appt details and sent mychart msg Reason Comments Appointment LVM INFORMING MODESTO T THAT WE NEED TO CANCEL HER APPOINTMENT WITH DARA LEOS SEEING SHE NEEDS TO BE SEEN BY A PHYSICIAN FIRST SO I LEFT NUMBER TO CALL SO WE CAN GET HER SCHEDULED Specialty Diagnoses / Procedures Referred By Ortega duval Referred To Contact MR IMAGING Diagnoses Multiple sclerosis (HCC) Procedures MRI BRAIN WO/W IVCON MRI BRAIN BRAIN STEM W/O W/CONTRAST MATERIAL Alok Rucker MD [address] [place] [address] Mr Imaging [place] [address] Referral ID Status Reason Start Date Expiration Date V isits Requested Visits Authorized [id number] Closed Auto-Generate d Referral 07/27/2023 08/25/2023 1 1 Reason Comments Established Patient Follow-Up Reason Comments Forms Questionnaire Results Call attempt to [facility] FCE eval, LVM Reason Comments Functional Capacity Eval Specialty Diagnoses / Procedures Referred By Ortega duval Referred To Contact [facility] Diagnoses Multiple sclerosis (HCC) Procedures CONSULT TO PHYSICAL THERAPY PHYSICAL THERAPY EVALUATION HIGH COMPLEX 45 MINS Rebecca Young, OVERNIGHT ASSOCIATE.PUBLICATION DESIGNER [address] [place] [address] Phone: tel: fax: [facility] [address] [place] [address] Referral ID Status Reason Start Date Expiration Date Visits Requested Visits Authorized [id number] Pending Review Auto-Generat ed Referral 08/24/2023 08/23/2024 1 1 Reason Comments Opened In Error Reason Comments Medication Preauthorization Diemethyl Fu marate - Approved exp 04/11/2024 Reason Onset Date Comments Refill Request 04/07/2024 Reason Comments Med Change Request Reason Comments Forms Call from Tato sutherland up on a request for the pt's Questionnaire to be completed and the FCE sheet for their disability hearing before 04/23/24 refaxed Reason Comments Forms [employer] SS disability Reason Comments Forms [employer] Reason Comments Appointment left for patient about scheduling follow up with Rebecca Young per rx reponse. called [phone] Care Teams (unrecognized sec tion and content) Principal Planner Relationship Specialty Start Date End Date Apurva Burgos [address] [place], [place] [id number] PCP - General Family Practice 05/07/20 Principal Planner Relationship Specialty Start Date End Date Apurva Burgos [address] [facility] [address] [place] [address] PCP - General Family Practice 05/07/20 Principal Planner Relationship Specialty Start Date End Date Apurva Burgos [address] [facility] [address] [place] [address] PCP - General Family Medicine 05/07/20 Principal Planner Relationship Specialty Start Date End Date Apurva Burgos [address] [facility] [address] [place] [address] PCP - General Family Medicine 05/07/20 Principal Planner Relationship Specialty Start Date End Date Apurva Burgos [address] [facility] [address] [place] [address] PCP - General Family Medicine 05/07/20 Principal Planner Relationship Specialty Start Date End Date Apurva Burgos [address] [facility] [place] [address] PCP - General Family Medicine 05/07/20 Principal Planner Relationship Specialty Start Date End Date Apurva Burgos [address] [place] [address] PCP - General Family Medicine 05/07/20 Team Status: Active Member Role Status Dates Dr. Apurva Burgos MD Family Provider Active Dr. Apurva Burgos MD Primary Care Provider Active Team Status: Inactive Member Role Status Dates Dr. Apurva Burgos MD Primary Care Provider Active Dr. Ariel Kurtz DO Emergency Provider Active Principal Planner Relationship Specialty Start Date End Date Apurva Burgos [address] [place] [address] PCP - General Family Medicine 05/07/20 Principal Planner Relationship Specialty Start Date End Date Apurva Burgos [address] [place] [address] PCP - General Family Medicine 05/07/20 Principal Planner Relationship Specialty Start Date End Date Apurva Burgos [address] [place] [address] PCP - General Family Medicine 05/07/20 Principal Planner Relationship Specialty Start Date End Date Apurva Burgos [address] [place] [address] PCP - General Family Medicine 05/07/20 Principal Planner Relationship Specialty Start Date End Date Apurva Burgos [address] [place] [address] PCP - General Family Medicine 05/07/20 Principal Planner Relationship Specialty Start Date End Date Apurva Burgos [address] [place] [address] PCP - General Family Medicine 05/07/20 Principal Planner Relationship Specialty Start Date End Date Apurva Burgos [address] [place] [address] PCP - General Family Medicine 05/07/20 Principal Planner Relationship Specialty Start Date End Date Apurva Burgos [address] [place] [address] PCP - General Family Medicine 05/07/20 Principal Planner Relationship Specialty Start Date End Date Apurva Burgos [address] [place] [address] PCP - General Family Medicine 05/07/20 Principal Planner Relationship Specialty Start Date End Date Apurva Burgos [address] [place] [address] PCP - General Family Medicine 05/07/20 Principal Planner Relationship Specialty Start Date End Date Apurva Burgos [address] [place] [address] PCP - General Family Medicine 05/07/20 Principal Planner Relationship Specialty Start Date End Date Apurva Burgos [address] [place] [address] PCP - General Family Medicine 05/07/20 Principal Planner Relationship Specialty Start Date End Date Apurva Burgos [address] [place] [address] PCP - General Family Medicine 05/07/20 Goals (unrecognized section and content) Goals may be documented in a n alternate section INFORMATION SOURCE (unrecogn ized section and content) DATE CREATED AUTHOR 07/13/2023 [facility] DATE CREATED AUTHOR AUTHOR'S ORGANIZ ATION 11/16/2024 [facility] DATE CREATED AUTHOR AUTHOR'S ORGANIZ ATION 12/24/2024 [facility] FOR RECORDS PERTAINING TO PATIENTS WHO ARE OR HAVE BEEN ENROLLED IN A CHEMICAL DEPENDENCY/SUBSTANCEABUSE PROGRAM, SOME INFORMATION MAY BE OMITTED. This clinical summary was aggregated from multiple sources. Caution should be exercised in using it in the provision of clinical care. This summary normalizes information from multiple sources, and as a consequence, information in this document may materially change the coding, format and clinical context of patient data. In addition, data may be omitted in some cases. CLINICAL DECISIONS SHOULD BE BASED ON THE PRIMARY CLINICAL RECORDS. [facility]. provides no warranty or guarantee of the accuracy or completeness of information in this document.
== END | disposition home or self-care (01) ==
LOC: MRI 13:06
PROVIDERS: PCP Family Medicine; Referring Provider Surgery; Visit Provider Surgery
DX: R22.2 Localized swelling, mass and lump, trunk (principal)
CPT/HCPCS: 72197; A9575; A4216